=== PATIENT | male | born 1980 | race Caucasian/White ===

== ENCOUNTER 2022-09-03 01:10 | Emergency (ER) | payer MEDICARE, SELFPAY ==
[2022-09-03 01:16] VITALS: BP 149/98; PULSE 119; RESP 16; TEMP 37.1; O2SAT 96
--- NOTE | 2022-09-03 01:43 | ED.GENADUL_ITS ---
Discharge Plan Disposition Patient Disposition: Home Discharge Details Clinical Impression: Low back pain Primary Care Provider: Unknown,Unknown ED Provider: Matthew Diallo Home Meds and New Rx's Prescriptions: New naproxen 375 mg tablet 375 mg PO BID PRNQty: 30 0RF prednisone 10 mg tablets,dose pack 10 mg PO DIRECTED Qty: 21 0RF Rx Instructions: see taper instructions cyclobenzaprine 10 mg tablet 10 mg PO BID Qty: 20 0RF Discharge Instructions Instructions: Low Back Strain (ED) Referrals: Sulaiman Rose MD [ [facility] STAFF PHYSICIAN] - 5 days Discharge Data Discharge Date/Time-TO BE ENTERED AT DEPARTURE: 09/03/22 08:18 Discharge Physician: Matthew Diallo Medical Decision Making Patient with acute on chronic back pain has had multiple surgeries in his back c omes for mild muscle spasm probably related that he had a cane that he was using and has compensated with his back. He received Toradol in the emergency department and a Percocet but also will be discharged on Naprosyn and Flexeril and he will follow-up with the orthopedic surgeon if needed for he is concerned about the hardware that he has but he has no radiculopathy no neurological signs and is much improved after Toradol in the emergency department. He will be discharged home Medical Records Medical records reviewed: Yes I reviewed the patient's medical records. HPI General Date/Time Provider Initiated Documentation: 09/03/22 01:43 . HPI Narrative: Patient presents to the emergency department stating that he has acute on chronic back pain. States that for the last 3 weeks he has been having low back pain but denies any radiation to his lower extremities denies lower extremity weakness or numbness. 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 Reports the pain is a dull 4/10 pain sometimes gets worse sometimes improves. Related Data Home Medications Medication Instructions Recorded Confirmed cyclobenzaprine 10 mg tablet 10 mg PO BID #20 tabs 09/03/22 naproxen 375 mg tablet 375 mg PO BID PRN #30 tabs 09/03/22 prednisone 10 mg tablets in a dose 10 mg PO DIRECTED #21 dose pk 05/19/23 pack Previous Rx's Medication Instructions Recorded cyclobenzaprine 10 mg tablet 10 mg PO BID #20 tabs 09/03/22 naproxen 375 mg tablet 375 mg PO BID PRN #30 tabs 09/03/22 prednisone 10 mg tablets in a dose 10 mg PO DIRECTED #21 dose pk 09/03/22 pack Allergies Allergy/AdvReac Type Severity Reaction Status Date / Time acetaminophen [From Tylenol] Allergy Unverified 09/03/22 01:21 morphine Allergy Unverified 09/03/22 01:21 General Stated Complaint: Nk/Back Pain HUMBERTO: 3 Review of Systems All systems reviewed & are unremarkable except as noted in HPI and below Constitutional Constitutional: Reports as per HPI and Reports system reviewed and no additional complaints, except as documented Eyes Eyes: Reports as per HPI and Reports system reviewed and no additional complaints, except as documented ENT Ears, Nose, Mouth, and Throat: Reports system reviewed and no additional complaints, except as documented and Reports as per HPI Cardiovascular Cardiovascular: Reports as per HPI Respiratory Respiratory: Reports as per HPI and Reports system reviewed and no additional complaints, except as documented Gastrointestinal Gastrointestinal: Reports as per HPI and Reports system reviewed and no additional complaints, except as documented Musculoskeletal Musculoskeletal: Reports system reviewed and no additional complaints, except as documented Integumentary/Breasts Skin/Breast: Reports system reviewed and no additional complaints, except as documented Neurologic Neurologic: Reports system reviewed and no additional complaints, except as documented and Reports as per HPI PFSH All Active Problems Low back pain (Acute) Social History Smoking/Tobacco Use Status: Current every day Tobacco Type: cigarettes Smoking risk assessment performed?: Yes Drug use: Rarely Substance use type: marijuana and crack/cocaine Exam Const General: cooperative, healthy appearing, comfortable and no acute distress [facility] Head: normal to inspection, no palpable skull fracture, normocephalic and atraumatic General nose exam: external nose normal Face and sinus: normal facial exam Eyes General: appearance normal, both eyes and all related structures Neck Neck: normal visual inspection, full ROM and no lymphadenopathy Chest Chest: normal inspection of the chest and normal palpation of entire chest wall Resp Effort & Inspection: normal respiratory effort and able to speak in complete sentences Auscultation: clear to auscultation bilaterally Cardio Jugular venous pressure: no JVD Palpation: normal PMI Rate: regular rate Rhythm: regular rhythm Heart Sounds: S1 normal and S2 normal Back/Spine/Pelvis Thoracic/Lumbar Spine: thoraco-lumbar spasm and lumbar spinal tenderness Back/spine/pelvis image: 1. Tenderness to the lumbosacral spine with mild muscle spasm but full range of motion no step-offs Neuro General: patient alert, patient awake and patient oriented x3 Cranial Nerves: CN's II-XI intact bilaterally Cognition: normal cognition Speech: speech normal Gait: normal gait Motor: muscle tone normal throughout and strength 5/5 throughout Sensory Exam: no sensory deficits noted Course Vital Signs Vital signs: Vital Signs Temperature 37.1 C 09/03/22 01:16 Pulse 119 H 09/03/22 01:16 Respiratory Rate 16 09/03/22 01:16 Blood Pressure 149/98 H 09/03/22 01:16 Pulse Oximetry 96 09/03/22 01:16 Temperature 37.1 C 09/03/22 01:16 Temperature Source Temporal Artery Scan 09/03/22 01:16 Pulse 119 H 09/03/22 01:16 Respiratory Rate 16 09/03/22 01:16 Respiratory Effort Normal 09/03/22 01:16 Blood Pressure 149/98 H 09/03/22 01:16 Blood Pressure Position Sitting 09/03/22 01:16 Pulse Oximetry 96 09/03/22 01:16 Oxygen Delivery Method Room Air 09/03/22 01:16 Oxygen Flow Rate 0 09/03/22 01:16 Pain Level 10 09/03/22 01:16
[2022-09-03] MEDS: predniSONE 20 MG TAB 40 MG PO (01:50)
[2022-09-03] MEDS: Ketorolac 15 MG/ML VIAL IM (01:50)
== END 2022-09-03 08:18 | disposition home or self-care (01) ==
PROVIDERS: Emergency Provider Emergency Medicine Emergency Medical Services
DX: M54.50 Low back pain, unspecified (principal); G89.29 Other chronic pain; Z98.890 Other specified postprocedural states
CPT/HCPCS: 96372; 99284; J1885; J7512

== ENCOUNTER 2022-12-22 18:30 | Inpatient (IN) | payer MEDICARE, SELFPAY ==
[2022-12-22] VITALS (42 sets, daily range): BP systolic 97–164; BP diastolic 55–147; PULSE 72–117; RESP 12–22; TEMP 36.6; O2SAT 93–98
--- NOTE | 2022-12-22 18:15 | RT.EKG_ITS ---
APPROVED REPORT Exam: Resting ECG Reason for Exam: OD Patient Location: E HR:117 bpm ECG Measurements Heart Rate 117 AXIS IA 155 P 62 QRSd 95 QRS -17 QT 350 T 56 QTc 489 Conclusion Sinus tachycardia...rate> 99 Ventricular premature complex...V complex w/ short R-R interval Nonspecific T abnormalities, anterior leads...T <-0.10mV, V2-V4 Prolonged QT interval...QTc >488mS Narrow complex sinus tachycardia at a rate of 117. Intervals within normal limits with the exception of mildly prolonged QTc of 489 ms. Difficult to interpret patient wandering baseline. No acute inj ury pattern. No prior for comparison.
--- NOTE | 2022-12-22 18:31 | ED.GENADUL_ITS ---
Discharge Plan Disposition Patient Disposition: Admit to [facility] Discharge Details Clinical Impression: Overdose of cocaine, Acute encephalopathy, Acute hyperactive cocaine intoxication delirium, Agitation requiring sedation protocol Admit Date/Time: 12/22/22 21:43 Admit Provider: Matt Paulson Attending Provider: Matt Paulson Primary Care Provider: Unknown,Unknown ED Provider: Brian Ludwig Discharge Data Discharge Date/Time-TO BE ENTERED AT DEPARTURE: 12/22/22 22:42 Medical Decision Making This is an altered tachycardic but normothermic following overdose of cocaine and fentanyl now with hyperactive delirium with agitation requiring sedation. His QRS is not wide so we will defer bicarbonate at this point time. Will assess for myocardial injury using troponin. We will also assess for rhabdomyolysis using CK. Given the patient has received 10 mg of midazolam respiratory therapy evaluated the patient at bedside. His end-tidal CO2 was acceptable in the 30s. Patient was acutely agitated and required restraints. He was placed in four-point restraints. Given no head trauma I was not concerned for intracranial hemorrhage. No signs of trauma so we will defer trauma evaluation at this point time.Given no hypoxia and maintaining airway will defer subsequent naloxone at this point time to avoid possibility of precipitated opiate withdrawal. Fingerstick blood glucose within normal limits. Restraints The patient is actively exhibiting, verbally or nonverbally, through gestures or behavior, actions indicating an eminent risk of injury to the patient or others.? The behavior actively poses a threat, which puts themselves or another person in immediate danger of harm. I will remove restraints as soon as behavior has resolved, and the patient is able to contract for safety and the safety?of others. I will reassess the patient in an hour if they remain in restraints and I will complete the [id number] reassessment. 6:45 PM Patient was markedly hypertensive which is consistent with sympathomimetic toxidrome. He was tremulous in 4 extremities with some foaming at his mouth which raises the possibility of seizures so I ordered him off 3 mg of IV midazolam and 1.5 g of levetiracetam. Alcohol withdrawal is certainly also a possibility. 6:54 PM Patient was still tremulous in all 4 extremities and foaming at the mouth following 3 mg of midazolam. We will redose with 6 mg of midazolam given concern for possible seizures. Will order CT head once patient is sedate. 7:04 PM Patient with still tremulous and thrashing in bed but foaming had decreased. Will order 5 mg of diazepam. 7:12 PM Negative troponin. Negative ethanol. Negative acetaminophen. Basic metabolic panel with mild anion gap. Normal creatinine. Normal bicarbonate. Mild hypokalemia with a serum potassium of 3.3. Normal CK. Negative salicylate. CBC with leukocytosis but no anemia. No thrombocytopenia. Venous gas with no hypercarbia nor acidemia. Patient is still tremulous and intermittently straining at restraints. We will escalate to 10 mg of diazepam. 7:24 PM Patient remained with slightly decreased but still persistent agitation for which I gave him an additional 10 mg of diazepam. 7:35 PM Patient remained persistently agitated for which I will order him 4 milligrams of IV lorazepam. 7:40 PM Patient remained persistently agitated. Will order an additional 10 of diazepam and if patient requires more than 3 more doses of sedation will proceed to intubation with plan for propofol drip given concern for possible precipitated seizure. 8:30 PM Patient was intubated given his need for constant nursing supervision and concern for possible seizures versus sympathomimetic toxidrome requiring higher level of care. I spoke with Dr. Paulson who agreed graciously to accept the patient for hospitalization. Patient was intubated using rocuronium and propofol for paralytic and adduction respectively. I ordered a chest x-ray. We will insert a Marshall catheter and will order urine drug screen and urinalysis. We will also repeat basic labs and a CK and a troponin. For postintubation discomfort I gave an additional 200 mg of propofol and 1 mg of hydromorphone. 9:45 PM Patient became more agitated again. He is on a propofol drip and I will order him 20 mg of diazepam. Urine drug screen positive for cocaine. Will titrate propofol gtt to keep his systolic at 100mm Hg to ensure adequate sedation. HPI General Date/Time Provider Initiated Documentation: 12/22/22 18:31 . HPI Narrative: This is a patient with unknown history and unknown identity arriving via paramedics in the setting of an overdose. Patient was reportedly found by an acquaintance in the parking lot of a local grocery store. The acquaintance knew that his name was Cyril. The acquaintance was driving him home when he presumably became somnolent. The acquaintance reported administered a total of 8 mg intranasal naloxone. He subsequently became combative and his acquaintance drove him to the police department. Paramedics were called. Patient was able to ambulate to the ambulance. He reportedly had used fentanyl and cocaine. For his acute agitation he received 10 mg of intramuscular midazolam and 288 mg of ketamine by paramedics. Unable to obtain additional history secondary to the acuity of the patient's presentation. General Stated Complaint: OD/Poison HUMBERTO: 1 PFS All Active Problems (Updated 12/23/22 @ 08:52 by Brian Ludwig MD) Acute hyperactive cocaine intoxication delirium (Acute) Agitation requiring sedation protocol (Acute) Acute hyperactive opioid intoxication delirium (Acute) Aspiration pneumonia (Acute) Overdose of cocaine (Acute) Acute encephalopathy (Acute) Social History Smoking risk assessment performed?: No Exam Narrative Exam Narrative: General: Chronically ill-appearing agitated eyes closed with diffuse diaphoresis. Pulling out lines and arms. Head: Normocephalic, atraumatic. Eye: Pupils equal, round reactive to light 3 to 2 mm. Extraocular eye movements intact. No conjunctival injection. No scleral icterus. Ear, nose, mouth, throat: Grossly normal inspection. handling secretions normally. No hemotympanum. Neck: Trachea midline. Cardiovascular: Well-perfused distal extremities. Rapid regular rate Respiratory: Nonlabored respiration. Clear lungs. Gastrointestinal: Nondistended abdomen. Soft nontender Musculoskeletal: No edema. Moving all 4 extremities spontaneously. Healing abrasion to right forearm. Skin: Normal for age and race, grossly normal temperature and turgor. No acute rash. Neurologic: GCS 3. Psychiatric: Mood and manner are appropriate. Grooming and personal hygiene are appropriate. Course Vital Signs Vital signs: Vital Signs Pulse 117 H 12/22/22 18:22 Respiratory Rate 22 12/22/22 18:22 Pulse Oximetry 97 12/22/22 18:22 Pulse 117 H 12/22/22 18:22 Respiratory Rate 22 12/22/22 18:22 Pulse Oximetry 97 12/22/22 18:22 Oxygen Delivery Method Nasal Cannula 12/22/22 18:22 Oxygen Flow Rate 2 12/22/22 18:22 End Tidal Co2 32 12/22/22 18:22 Procedures Intubation Time out performed: Yes sedative: other (2 mg/kg propofol) paralytic: other (1.2 mg/kg rocuronium) Laryngoscope: other (Alba scope) ET Tube Size: 7 ET Tube Uncuffed: No Tube Secured Depth (cm): 24 Tube Secured Location: lips Tube Placement Confirmation: visualized tube passing through cords, equal breath sounds bilaterally and confirmation by capnometry Patient Tolerated Procedure: well Intubation Complications: none Additional Comments: Patient maintained on propofol drip. Critical Care Time Critical Care Time Critical Care Time: Yes Total Critical Care Time: 90 Attestation: Acute agitation
[2022-12-22] MEDS: Normal Saline 1,000 ML 1000 ML IV (18:41)
[2022-12-22 18:44] LABS: BE (Venous) 0 mmol/L (-2-3); HCO3 (Venous) 24 mmol/L (23-28); pCO2 (Venous) 34 mmHg (41-51); pH (Venous) 7.46 (7.31-7.41); pO2 (Venous) 156 mmHg
--- NOTE | 2022-12-22 18:45 | DI.CT_ITS ---
Exam(s) CT HEAD WO EXAM: CT HEAD WO CLINICAL HISTORY: Concern for seizure. TECHNIQUE: Imaging Protocol: Axial computed tomography images with coronal and sagittal reformatted images were created and reviewed COMPARISON: No exams were available for comparison FINDINGS: Patient is intubated.. There both nasal airway and endotracheal tube noted. Nasal bone fractures ev ident as well as nasal septal fractures, age indeterminate. There are no skull fractures. There is no fluid in the visualized paranasal sinuses. There is no evidence of intracranial hemorrhage, mass effect, or shift of midline structures. There are no extra-axial fluid collections. The ventricles are not enlarged or shifted and there is no blo od within the ventricular system nor within the basal cisterns. IMPRESSION: No acute intracranial findings on this noninfused CT scan of the brain. Intubated patient RADIATION DOSE DELIVERED: 788.63mGy.cm Total DLP DATA REPOSITORY: All CT scans at this facility are submitted to the National Radiology Data Registry (NRDR) Dose Index Registry (DIR) with the [employer] (A[employer]). RADIATION OPTIMIZATION: All CT scans at this facility use at least one of these dose optimization te chniques: automated exposure control; mA and/or kV adjustment per patient size (includes targeted exa ms where dose is matched to clinical indication); or iterative reconstruction.
[2022-12-22 18:46] LABS: Abs Immature Grans 0.04 10^3/uL (0.0-0.06); Absolute Eosinophil Count 0.26 10^3/uL (0.0-0.7); Absolute Lymphocyte Count 2.22 10^3/uL (1.2-3.4); Absolute Monocyte Count 0.77 10^3/uL (0.1-0.8); Basophils % 0.5; HCT 39.8 % (40.0-50.0); HGB 13.7 g/dL (13.5-17.5); Immature Grans % 0.3; Lymphocytes % 16.8; MCH 30.6 pg (27.0-33.0); MCHC 34.4 % (32.0-36.0); MCV 89 fL (80-95); MPV 11.3 fL (8.0-11.0); Monocytes % 5.8; Neutrophils % 74.6; O2 Sat (Venous) > 99 %; Platelet Count 220 10^3/uL (130-400); RBC 4.47 10^6/uL (4.36-5.78); RDW-SD 39.2 fL; WBC 13.21 10^3/uL (4.4-10.8)
[2022-12-22 18:48] LABS: Absolute Basophil Count 0.07 10^3/uL (0.0-0.2); Absolute Neutrophil Count 9.85 10^3/uL (1.2-6.7)
[2022-12-22] MEDS: Midazolam 2 MG/2 ML VIAL 3 MG IVP (19:00)
[2022-12-22] MEDS: Midazolam 2 MG/2 ML VIAL 6 MG IVP (19:05)
[2022-12-22 19:07] LABS: Anion Gap 14.2 mmol/L (3-11); BUN 12 mg/dL (7-18); CO2 23.8 mmol/L (21.0-32.0); Calcium 9.3 mg/dL (8.5-10.1); Chloride 102 mmol/L (98-107); Creatine Kinase 295 U/L (39-308); Estimated GFR 101.92 (mL/min/1.73m2); Glucose 103 mg/dL (74-106); Potassium 3.3 mmol/L (3.5-5.1); Salicylate 5.5 mg/dL (<2.8); Sodium 140 mmol/L (136-145)
[2022-12-22] MEDS: diazePAM 10 MG/2 ML SYR 5 MG IVP (19:07)
[2022-12-22 19:09] LABS: ETHANOL BLOOD < 3.0 mg/dL (<10); Troponin I < 50 ng/L (<or=60)
[2022-12-22 19:10] LABS: Acetaminophen < 2 ug/mL (10-30)
[2022-12-22] MEDS: diazePAM 10 MG/2 ML SYR IVP ×3 (19:17→19:40)
--- NOTE | 2022-12-22 19:27 | NUR.NOTE ---
After all of the medications pt continues to be unresponsive and fight against his restraints aggressively. Nursing Note:
[2022-12-22] MEDS: LORazepam 2 MG/ML VIAL 4 MG IVP (19:36)
[2022-12-22] MEDS: PROPOFOL 1,000 MG/100 ML BTL 1 MG (20:00)
--- NOTE | 2022-12-22 20:15 | DI.RAD_ITS ---
Exam(s) XR PORTABLE CHEST AP EXAM: XR PORTABLE CHEST AP CLINICAL HISTORY: Confirm ET tube. TECHNIQUE: 2D digital imaging was performed. COMPARISON: No exams were available for comparison FINDINGS: Single AP portable view. Patient is intubated and the distal tip of the endotracheal tube is in satisfactory position above th e latesha. Radiopaque densities projected over the trachea at C7 level. An NG tube is noted in the s tomach. Heart size is upper normal. The mediastinum is not widened. Lungs are clear. No infiltrates nor obvious pleural effusions. IMPRESSION: No acute pulmonary findings on this single AP portable view of the chest. ET tube in satisfactory position. NG tube is in the stomach. DATA REPOSITORY: RADIATION DOSE DELIVERED:
[2022-12-22] MEDS: HYDROmorphone 2 MG/ML SYR 1 MG IVP (20:49)
[2022-12-22 20:52] LABS: Bilirubin Negative (Negative); Blood Negative (Negative); Clarity Clear (Clear); Glucose Negative (Negative); Ketones Negative (Negative); Leukocyte Esterase Negative (Negative); Nitrite Negative (Negative); Urobilinogen 0.2 mg/dL (Up to 0.2)
[2022-12-22 20:59] LABS: *AMPHETAMINES SCREEN URINE Negative (Negative); *BARBITURATES SCREEN URINE Negative (Negative); *BENZODIAZEPINES SCREEN URINE Positive (Negative); Cannabinoids THC Negative (Negative); Cocaine Screen,Urine Positive (Negative); METHADONE URINE SCREEN Negative (Negative); OPIATES URINE SCREEN Negative (Negative)
[2022-12-22 21:00] LABS: Tricyclic Antidepressants Negative (Negative)
[2022-12-22 21:02] LABS: Anion Gap 11.1 mmol/L (3-11); BUN 11 mg/dL (7-18); CO2 25.9 mmol/L (21.0-32.0); CREATININE 0.9 mg/dL (0.70-1.30); Calcium 8.5 mg/dL (8.5-10.1); Chloride 106 mmol/L (98-107); Estimated GFR 108.68 (mL/min/1.73m2); Glucose 110 mg/dL (74-106); Potassium 3.3 mmol/L (3.5-5.1); Sodium 143 mmol/L (136-145); Troponin I < 50 ng/L (<or=60)
[2022-12-22] MEDS: PROPOFOL 1,000 MG/100 ML BTL 1.9 MG (21:10)
--- NOTE | 2022-12-22 21:13 | DI.VRAD_ITS ---
PROCEDURE INFORMATION: Exam: XR Chest Exam date and time: 12/22/2022 8:42 PM Age: 32 years old Clinical indication: Other: Concern for seizure, tube placement TECHNIQUE: Imaging protocol: Radiologic exam of the chest. Views: 1 view. COMPARISON: No relevant prior studies available. FINDINGS: Ended tube tip 4 cm above the latesha Lungs: Unremarkable. No consolidation. Pleural spaces: Unremarkable. No pleural effusion. No pneumothorax. Heart/Mediastinum: Unremarkable. No cardiomegaly. Bones/joints: Unremarkable. IMPRESSION: No acute findings. Dictated and Authenticated by: Shawn Mckeon MD. Ordering:AVIS Torres MD
[2022-12-22 21:15] LABS: Creatine Kinase 596 U/L (39-308); Magnesium 1.9 mg/dL (1.8-2.4)
--- NOTE | 2022-12-22 21:24 | DI.VRAD_ITS ---
PROCEDURE INFORMATION: Exam: CT Head Without Contrast Exam date and time: 12/22/2022 9:03 PM Age: 42 years old Clinical indication: Other: Concern for seizure TECHNIQUE: Imaging protocol: Computed tomography of the head without contrast. COMPARISON: No relevant prior studies available. FINDINGS: Brain: Mild volume loss No hemorrhage. Unremarkable white matter. No mass effect. Cerebral ventricles: No ventriculomegaly. Paranasal sinuses: Visualized sinuses are unremarkable. No fluid levels. Mastoid air cells: Visualized mastoid air cells are well aerated. Bones/joints: Minimal nasal bone/nasal septal fractures of indeterminate age Soft tissues: Unremarkable. IMPRESSION: No acute intracranial abnormality. Age-indeterminate nasal bone/nasal septal fractures Dictated and Authenticated by: Shawn Mckeon MD. Ordering:AVIS Torres MD
[2022-12-22] MEDS: Propofol 200 MG/20 ML VIAL 140 MG IVP (21:40)
[2022-12-22] MEDS: Rocuronium 50 MG/5 ML SYR 84 MG IVP (21:40)
--- NOTE | 2022-12-22 21:41 | W.PM.HP.N ---
Date of service: 12/22/22 Time of Service: 21:41 Assessment and Plan Assessment and plan (1) Overdose of cocaine: Start date: 12/22/22 Status: Acute Assessment and plan: This 42-year-old gentleman who does have a history of cocaine and fentanyl abuse as reported by friend presented with severe agitation after being given Narcan by his friend and did require heavy sedation in the ED now intubated on propofol infusion. Patient will continue with fentanyl IV as needed and propofol infusion for rest overnight. He is in restraints as needed. Labs are normal except for slight hypokalemia and patient will be placed on IV hydration with potassium with lab follow-up in the morning. Troponin was normal but CPK was slightly elevated with his agitation and being restrained this should be helped with IV hydration overnight. Follow-up CPK in the morning. He is resting presently and not tugging which should help CPK to clear. He is a full code. (2) Acute encephalopathy: Start date: 12/22/22 Status: Acute Assessment and plan: Secondary to polysubstance abuse and oversedation with fentanyl suspected which would not be screened on the urine drug screen. He does also use cocaine. Monitor with sedation and intubation. This should clear with time. He is not having obvious seizures at this time but was loaded with Keppra in the ED. Consider continuing Keppra if any evidence of seizures at the patient awakens. (3) Aspiration pneumonia: Start date: 12/22/22 Status: Acute Assessment and plan: Patient does not have any signs of aspiration on chest x-ray but is rhonchorous with intubation and there is some concern of aspiration with slight leukocytosis. He will be covered with Unasyn IV. Reevaluate with follow-up chest x-ray and clinically. (4) Acute hyperactive opioid intoxication delirium: Start date: 12/22/22 Status: Acute Assessment and plan: Patient will remain sedated and intubated for safety. IV fentanyl as needed for sedation and withdrawal. Long-term patient needs drug alcohol rehabilitation. This delirium should clear the patient's outpatient illicit medications are cleared over time. History of Present Illness History of Present Illness Chief Complaint: Agitation with presumed cocaine overdose Narrative: This is a 42-year-old male patient who was brought into the ED via EMS with monitor the patient because of severe agitation as a defective cigarette slitter was trying to bring him to the police station and to the ED. He required Versed and ketamine and then in the ED required several doses of Valium as well as being given Keppra loading dose because of possible seizures. He was eventually intubated because of severe agitation and high-dose Valium and placed on propofol drip. At the time I saw the patient in the ED he was sedated and resting comfortably though he did sounds slightly rhonchorous despite being intubated. He has had an NG tube in place with some blood around the NG tube. He was unable to give further history. See ED note for further course in the ED. Patient had a negative alcohol level and is not certain whether he drinks alcohol. He definitely is a polysubstance abuser using fentanyl and cocaine by history from his defective cigarette slitter. He is a full code. Review of Systems Narrative: 13 point review of systems otherwise unrevealing or unobtainable with patient encephalopathic. [facility] All Active Problems (Updated 12/22/22 @ 22:54 by Matt Paulson) Acute hyperactive opioid intoxication delirium (Acute) Aspiration pneumonia (Acute) Overdose of cocaine (Acute) Acute encephalopathy (Acute) Social History Smoking risk assessment performed?: No Exam Narrative Exam Narrative: General: Patient appears older than stated age, thin and unkempt appearing chronically ill. He is intubated and sedated. HEENT: Normocephalic, coarsened facial features, eyes with pupils small but equal and reactive light symmetrically, extraocular movement intact and sclera anicteric. Oropharynx with dry mucosa with patient intubated and having NG tube in place. Poor dentition. Neck: Supple without JVD. Lungs: Bronchovesicular breath sounds diffusely with occasional rhonchi with expiration be mechanically ventilated. No focalizing rales. Fair aeration with mechanical ventilation. Heart: Regular rate and rhythm with no murmurs gallops appreciated. Abdomen: Scaphoid contour, soft nontender to palpation with no palpable hepatosplenomegaly. Bowel sounds positive in all quadrants. Genitalia/rectal: Full exam deferred. External genitalia normal with circumcised penis and Marshall catheter in place. Extremities: Without clubbing, cyanosis or pitting edema. Peripheral pulse intact. Skin: Normal color, warm and dry. Neuro: Cranial nerves II through XII grossly intact as assessed with patient sedated. No focal motor deficits with patient is awake. No tremor. Psych: Patient is encephalopathic and intubated now sedated. He does have severe agitation when awake. Results Imaging Imaging Studies: Exam: CT Head Without Contrast Exam date and time: 12/22/2022 9:03 PM Age: 42 years old Clinical indication: Other: Concern for seizure TECHNIQUE: Imaging protocol: Computed tomography of the head without contrast. COMPARISON: No relevant prior studies available. FINDINGS: Brain:? Mild volume loss No hemorrhage. Unremarkable white matter. No mass effect. Cerebral ventricles: No ventriculomegaly. Paranasal sinuses: Visualized sinuses are unremarkable. No fluid levels. Mastoid air cells: Visualized mastoid air cells are well aerated. Bones/joints:? Minimal nasal bone/nasal septal fractures of indeterminate age Soft tissues: Unremarkable. IMPRESSION: No acute intracranial abnormality. Age-indeterminate nasal bone/nasal septal fractures Exam: XR Chest Exam date and time: 12/22/2022 8:42 PM Age: 32 years old Clinical indication: Other: Concern for seizure, tube placement TECHNIQUE: Imaging protocol: Radiologic exam of the chest. Views: 1 view. COMPARISON: No relevant prior studies available. FINDINGS: Ended tube tip 4 cm above the latesha Lungs: Unremarkable. No consolidation. Pleural spaces: Unremarkable. No pleural effusion. No pneumothorax. Heart/Mediastinum: Unremarkable. No cardiomegaly. Bones/joints: Unremarkable. IMPRESSION: No acute findings. Labs 12/22/22 18:30 12/22/22 20:20 Labs: Laboratory Results - last 24 hr 12/22/22 12/22/22 12/22/22 18:30 18:30 18:30 WBC 13.21 H RBC 4.47 Hgb 13.7 Hct 39.8 L MCV 89 MCH 30.6 MCHC 34.4 RDW 12.0 Plt Count 220 MPV 11.3 H Immature Gran % 0.3 Neutrophils % 74.6 Lymphocytes % 16.8 Monocytes % 5.8 Eosinophils % 2.0 Basophils % 0.5 Nucleated RBC % 0.0 Absolute Neutrophils 9.85 H Absolute Lymphocytes 2.22 Absolute Monocytes 0.77 Absolute Eosinophils 0.26 Absolute Basophils 0.07 VBG pH VBG pCO2 VBG pO2 VBG HCO3 VBG Total CO2 VBG O2 Saturation VBG Base Excess Sodium 140 Potassium 3.3 L Chloride 102 Carbon Dioxide 23.8 Anion Gap 14.2 H BUN 12 Creatinine 1.0 Est GFR (CKD-EPI 2020) 101.92 Glucose 103 Calcium 9.3 Magnesium Creatine Kinase 295 Troponin I < 50 Urine Color Urine Clarity Urine pH Ur Specific [place] Urine Protein Urine Ketones Urine Blood Urine Nitrite Urine Bilirubin Urine Urobilinogen Ur Leukocyte Esterase Urine Glucose Salicylates 5.5 Urine Opiates Screen Urine Methadone Screen Acetaminophen < 2 Ur Barbiturates Screen Ur Tricyclics Screen Ur Amphetamines Screen U Benzodiazepines Scrn Urine Cocaine Screen Ur THC Screen Ethyl Alcohol < 3.0 12/22/22 12/22/22 12/22/22 18:30 20:20 20:20 WBC RBC Hgb Hct MCV MCH MCHC RDW Plt Count MPV Immature Gran % Neutrophils % Lymphocytes % Monocytes % Eosinophils % Basophils % Nucleated RBC % Absolute Neutrophils Absolute Lymphocytes Absolute Monocytes Absolute Eosinophils Absolute Basophils VBG pH 7.46 H VBG pCO2 34 L VBG pO2 156 VBG HCO3 24 VBG Total CO2 VBG O2 Saturation > 99 VBG Base Excess 0 Sodium 143 Potassium 3.3 L Chloride 106 Carbon Dioxide 25.9 Anion Gap 11.1 H BUN 11 Creatinine 0.9 Est GFR (CKD-EPI 2020) 108.68 Glucose 110 H Calcium 8.5 Magnesium 1.9 Creatine Kinase 596 H Troponin I < 50 Urine Color Urine Clarity Urine pH Ur Specific [place] Urine Protein Urine Ketones Urine Blood Urine Nitrite Urine Bilirubin Urine Urobilinogen Ur Leukocyte Esterase Urine Glucose Salicylates Urine Opiates Screen Urine Methadone Screen Acetaminophen Ur Barbiturates Screen Ur Tricyclics Screen Ur Amphetamines Screen U Benzodiazepines Scrn Urine Cocaine Screen Ur THC Screen Ethyl Alcohol 12/22/22 12/22/22 20:20 20:20 WBC RBC Hgb Hct MCV MCH MCHC RDW Plt Count MPV Immature Gran % Neutrophils % Lymphocytes % Monocytes % Eosinophils % Basophils % Nucleated RBC % Absolute Neutrophils Absolute Lymphocytes Absolute Monocytes Absolute Eosinophils Absolute Basophils VBG pH VBG pCO2 VBG pO2 VBG HCO3 VBG Total CO2 VBG O2 Saturation VBG Base Excess Sodium Potassium Chloride Carbon Dioxide Anion Gap BUN Creatinine Est GFR (CKD-EPI 2020) Glucose Calcium Magnesium Creatine Kinase Troponin I Urine Color Yellow Urine Clarity Clear Urine pH 7.0 Ur Specific [place] 1.010 Urine Protein Negative Urine Ketones Negative Urine Blood Negative Urine Nitrite Negative Urine Bilirubin Negative Urine Urobilinogen 0.2 Ur Leukocyte Esterase Negative Urine Glucose Negative Salicylates Urine Opiates Screen Negative Urine Methadone Screen Negative Acetaminophen Ur Barbiturates Screen Negative Ur Tricyclics Screen Negative Ur Amphetamines Screen Negative U Benzodiazepines Scrn Positive A Urine Cocaine Screen Positive A Ur THC Screen Negative Ethyl Alcohol Last Vital Signs Temp 36.6 C 12/22/22 19:19 Pulse 82 12/22/22 21:31 Resp 14 12/22/22 21:33 BP 158/126 H 12/22/22 21:31 Pulse Ox 96 12/22/22 21:33 Time Spent Time spent with Patient: >75 minutes Time was spent: preparing to see the patient(eg.review tests), obtaining and/or reviewing separately otained hiistory, ordering medications,tests, procedures, referring, communicating with other health school childcare attendant, indepentently interpreting results and care coordination
[2022-12-22] MEDS: diazePAM 10 MG/2 ML SYR 20 MG IVP (21:52)
[2022-12-23] VITALS (71 sets, daily range): BP systolic 97–155; BP diastolic 57–119; PULSE 75–138; RESP 11–21; TEMP 36.6–37.8; O2SAT 90–100
[2022-12-23] MEDS: POTASSIUM CHLORIDE/0.9% NACL 1,000 ML 125 MEQ IV (01:00)
[2022-12-23] MEDS: fentaNYL 100 MCG/2 ML VIAL 50 MCG IVP (03:15)
[2022-12-23] MEDS: diazePAM 10 MG/2 ML SYR IVP (03:58)
[2022-12-23] MEDS: AMPICILLIN/SULBACTAM 3 GM in Normal Saline 100 ML IVPB ×3 (04:22→19:29)
--- NOTE | 2022-12-23 04:49 | NUR.NOTE ---
ng TUBE DCD ORDERED BY dR Tapia
--- NOTE | 2022-12-23 06:40 | PUCC_ITS ---
General Date of Service Date of service: 12/23/22 Time of Service: 06:40 Reason for Admission to ICU: Overdose Assessment and Plan Assessment and plan (1) Overdose of cocaine: Status: Acute (2) Acute encephalopathy: Status: Acute (3) Leukocytosis: Status: Acute (4) Hypokalemia: Status: Acute (5) Elevated CK: Status: Acute Assessment and plan: This is a 42 yo with cocaine and possible over substance overdose. He was intubated but self extubated overnight due to agitation. He is able to tolerate his airway safely and is currently somnolent. He needs to have 4 point restraints removed and once he awakens his Marshall can be removed. He does not have rhabdo given modest rise in CK. There was concern for an aspiration, but his chest Xray is normal. It would be appropriate to continue antibiotics for 72 hours. Recommendations Pulmonary: Aspiration concern - can continue Unasyn/Augmentin for a total of 72 hours Cardiac: No acute conern Renal: Elevated CK - no rhabdo, no concerns I&O: Intake & Output 12/20/22 12/21/22 12/22/22 12/23/22 23:59 23:59 23:59 23:59 Intake Total 1115 / 1115 Output Total 300 / 300 600 / 600 Balance 815 / 815 -600 / -600 Weight 74.6 kg 74.6 kg Daily Fluid Goal:: even GI Nutrition: OK for diet when he awakens Infectious Disease: Aspiration concern - can continue Unasyn/Augmentin for a total of 72 hours Hematologic: Leukocytosis - reactive likely Neurologic: Polysubstance overdose - fentanyl and propofol discontinued - Valium for CIWA protocol - can change banana bag to thiamine, folate, MVI (not acutely intoxicated) Endocrine: No actue concerns Lines: PIV Marshall Prophylaxis: Lovenox Code Status: Resuscitation Status Full Code Subjective Critical and life-threatening events over the past 24 hours: This is a 42 yo admitted to the ICU for a cocaine (query polysubstance) overdose who was intubated in the ED. Please see H7P for more details. In the ICU he became agitated and self extubated. Sedating medications were stopped, but he has been receiving Valium. I stopped the propofol and fentanyl orders, and the Valium should only be for CIWA indications. He was sleeping and able to protect his airway on my assessment. He was still in 4 point restraints, but I instructed nursing to remove these and upon his aw akening, to remove the Marshall. Vital signs are stable. Exam Narrative Exam Narrative: Gen: NAD, sleeping HENT: normocephalic, atraumatic Chest: No respiratory distress, normal appearance of chest, clear to auscultation bilaterally, no crackles or wheezes, normal inspiratory effort Heart: regular rate and rhythym, no murmurs, rubs or gallops Abdomen: Non-distended, soft, non tender Extremities: No clubbing, edema, cyanosis, rashes Neuro: somnolent Psych: somnolent Most Recent VS/Results Last Vital Signs Temp 36.8 C 12/23/22 06:09 Pulse 95 H 12/23/22 06:09 Resp 16 12/23/22 06:09 BP 138/74 12/23/22 06:09 Pulse Ox 99 12/23/22 06:01 Laboratory Results - last 24 hr 12/22/22 12/22/22 12/22/22 18:30 18:30 18:30 WBC 13.21 H RBC 4.47 Hgb 13.7 Hct 39.8 L MCV 89 MCH 30.6 MCHC 34.4 RDW 12.0 Plt Count 220 MPV 11.3 H Immature Gran % 0.3 Neutrophils % 74.6 Lymphocytes % 16.8 Monocytes % 5.8 Eosinophils % 2.0 Basophils % 0.5 Nucleated RBC % 0.0 Absolute Neutrophils 9.85 H Absolute Lymphocytes 2.22 Absolute Monocytes 0.77 Absolute Eosinophils 0.26 Absolute Basophils 0.07 VBG pH VBG pCO2 VBG pO2 VBG HCO3 VBG Total CO2 VBG O2 Saturation VBG Base Excess Sodium 140 Potassium 3.3 L Chloride 102 Carbon Dioxide 23.8 Anion Gap 14.2 H BUN 12 Creatinine 1.0 Est GFR (CKD-EPI 2020) 101.92 Glucose 103 Calcium 9.3 Magnesium Creatine Kinase 295 Troponin I < 50 Urine Color Urine Clarity Urine pH Ur Specific [place] Urine Protein Urine Ketones Urine Blood Urine Nitrite Urine Bilirubin Urine Urobilinogen Ur Leukocyte Esterase Urine Glucose Salicylates 5.5 Urine Opiates Screen Urine Methadone Screen Acetaminophen < 2 Ur Barbiturates Screen Ur Tricyclics Screen Ur Amphetamines Screen U Benzodiazepines Scrn Urine Cocaine Screen Ur THC Screen Ethyl Alcohol < 3.0 12/22/22 12/22/22 12/22/22 18:30 20:20 20:20 WBC RBC Hgb Hct MCV MCH MCHC RDW Plt Count MPV Immature Gran % Neutrophils % Lymphocytes % Monocytes % Eosinophils % Basophils % Nucleated RBC % Absolute Neutrophils Absolute Lymphocytes Absolute Monocytes Absolute Eosinophils Absolute Basophils VBG pH 7.46 H VBG pCO2 34 L VBG pO2 156 VBG HCO3 24 VBG Total CO2 VBG O2 Saturation > 99 VBG Base Excess 0 Sodium 143 Potassium 3.3 L Chloride 106 Carbon Dioxide 25.9 Anion Gap 11.1 H BUN 11 Creatinine 0.9 Est GFR (CKD-EPI 2020) 108.68 Glucose 110 H Calcium 8.5 Magnesium 1.9 Creatine Kinase 596 H Troponin I < 50 Urine Color Urine Clarity Urine pH Ur Specific [place] Urine Protein Urine Ketones Urine Blood Urine Nitrite Urine Bilirubin Urine Urobilinogen Ur Leukocyte Esterase Urine Glucose Salicylates Urine Opiates Screen Urine Methadone Screen Acetaminophen Ur Barbiturates Screen Ur Tricyclics Screen Ur Amphetamines Screen U Benzodiazepines Scrn Urine Cocaine Screen Ur THC Screen Ethyl Alcohol 12/22/22 12/22/22 20:20 20:20 WBC RBC Hgb Hct MCV MCH MCHC RDW Plt Count MPV Immature Gran % Neutrophils % Lymphocytes % Monocytes % Eosinophils % Basophils % Nucleated RBC % Absolute Neutrophils Absolute Lymphocytes Absolute Monocytes Absolute Eosinophils Absolute Basophils VBG pH VBG pCO2 VBG pO2 VBG HCO3 VBG Total CO2 VBG O2 Saturation VBG Base Excess Sodium Potassium Chloride Carbon Dioxide Anion Gap BUN Creatinine Est GFR (CKD-EPI 2020) Glucose Calcium Magnesium Creatine Kinase Troponin I Urine Color Yellow Urine Clarity Clear Urine pH 7.0 Ur Specific [place] 1.010 Urine Protein Negative Urine Ketones Negative Urine Blood Negative Urine Nitrite Negative Urine Bilirubin Negative Urine Urobilinogen 0.2 Ur Leukocyte Esterase Negative Urine Glucose Negative Salicylates Urine Opiates Screen Negative Urine Methadone Screen Negative Acetaminophen Ur Barbiturates Screen Negative Ur Tricyclics Screen Negative Ur Amphetamines Screen Negative U Benzodiazepines Scrn Positive A Urine Cocaine Screen Positive A Ur THC Screen Negative Ethyl Alcohol Review of Systems Unobtainable due to mental status Time spent with patient Time spent in Critical Care: 35 Time spent in Critical care included: Coordination of care, Chart review, Documenting critically ill care, Time at immediate bedside and Discussing critically ill care with other medical staff
--- NOTE | 2022-12-23 08:35 | PDOC.CMIN ---
Date of service: 12/23/22 Time of Service: 08:35 Care Management Initial Assmt Initial Assessment REASON FOR HOSPITALIZATION:: respiratory failure PREVIOUS FUNCTIONAL STATUS/SOCIAL/FAMILY SUPPORTS:: Cristobal lives in [place], per chart review. Patient somnolent and unable to be interviewed. CURRENT FUNCTIONAL STATUS:: Cristobal is sedated and somnolent today and unable to respond to questions. He was asleep each time CM attempted to see him. ADVANCE DIRECTIVES:: none on file Has patient been provided with info about the portal/API?: Yes Did the patient sign up for the portal?: No CODE STATUS:: Full Code INSURANCE COVERAGE / FINANCIAL ISSUES:: [facility] medicare Replacement Plan POTENTIAL DISCHARGE NEEDS:: establish with PCP PATIENT/FAMILY EDUCATION NEEDS:: Review of discharge instructions, limitations, follow up plan, discuss Ask Me Three TRANSPORTATION:: via private vehicle PLAN:: Anticipate Cristobal will be discharged home with no new services when medically cleared. He will follow up with the assigned provider and plan of care and transport with a friend. CM will follow and assess for discharge planning PFSH All Active Problems (Updated 12/23/22 @ 13:02 by Naseem Wright MD) Accidental fentanyl overdose (Acute) Elevated CK (Acute) Hypokalemia (Acute) Leukocytosis (Acute) Overdose of cocaine (Acute) Acute encephalopathy (Acute) Aspiration pneumonia (Acute) Acute hyperactive opioid intoxication delirium (Acute) Acute hyperactive cocaine intoxication delirium (Acute) Agitation requiring sedation protocol (Acute) Social History (System 12/23/22 @ 09:16 by Amelia Almendarez) Smoking/Tobacco Use Status: Current every day Tobacco Type: cigarettes Smoking risk assessment performed?: Yes Drug use: Rarely Substance use type: marijuana and crack/cocaine
[2022-12-23] MEDS: Normal Saline Flush 10 ML SYR (10:02)
--- NOTE | 2022-12-23 10:35 | W.PM.PROGNOT ---
Date of Service Date of service: 12/23/22 Time of Service: 10:35 Assessment and Plan Assessment and plan (1) Acute encephalopathy: Status: Acute Assessment and plan: encephalopathy secondary to drug overdose and subsequent need for sedation to protect his airway. He subsequently self extubated during the night and now is somnolent d/t medications given early this morning to control his agitation (fentanyl and valium). continue observation in the ICU; no need to urgently re-intubate. he seems to be protectin his airway. Will keep NPO and keep cerda in place until he is more awake and coherent then will trial w/ liquid intake. will give gentle iv fluids and correct his electrolytes. Unfortunately no one was able to redraw his labs this morning. Critical care time spent interviewing and examining the patient, reviewing studies, discussing case with patient's nurse and consulting physicians was 45 minutes outside of time spent POCUS exam (2) Aspiration pneumonia: Status: Acute Assessment and plan: although his CXR last night did not show any infiltrates, his chest US suggests otherwise. I would continue iv Unasyn while inpatient. When awake and able to take po I will switch to Augmentin x 5 days. (3) Acute hyperactive opioid intoxication delirium: Status: Acute (4) Overdose of cocaine: Status: Acute (5) Accidental fentanyl overdose: Status: Acute (6) Elevated CK: Status: Acute (7) Hypokalemia: Status: Acute Subjective Subjective Interval history since last seen: 42-year-old male with a history of polysubstance abuse who become acutely somnolent and unresponsive while an acquaintance was driving home from the parking [employer] grocery store. The acquaintenance gave him naloxone 8 mg intranasal and he became combative at which point he was driven to local police and EMS was called to the seen. Patient reportedly had been using fentanyl and cocaine. EMS gave him midazolam and ketamine to control his agitations. While in the ED he became hypertensive and tremulous and exhibited foaming of the mouth raising possibility of a seizure. Patient received more midazolam and keppra 1.5 gm and escalating doses of lorazepam as well as diazepam and evetually was put on propofol dirp and intubated. Overnight he extubated himself despite being in 4 point restraints. Restraints have since been discontinued. He received fentanyl 50 mcg and valium 10 mg IV earlier this moring (fentanyl around 3:15 am and valium 10 mg at 4 am. He remains very sedated w/ sonorous respirations but w/ SPO2 of 100% on 2 lpm. Exam Narrative Exam Narrative: Patient is somnolent, sonorous respirations, he is arouseable but does not sustain any level of alertness and does not follow command HEENT: poor oral hygeine, poor dentition Neck: supple, multiple track ryan over neck, he has stateless character over right and left side of his neck Lungs: coarse bilateral rales; no wheezing Heart: RRR Abdomen: soft, nondistended, normal bowel sounds Extremities: track ryan but no open sores Objective Last Vital Signs Temp 37.6 C H 12/23/22 07:30 Pulse 98 H 12/23/22 09:00 Resp 18 12/23/22 09:00 BP 134/83 12/23/22 09:00 Pulse Ox 98 12/23/22 09:00 Laboratory Results - last 24 hr 12/22/22 12/22/22 12/22/22 18:30 18:30 18:30 WBC 13.21 H RBC 4.47 Hgb 13.7 Hct 39.8 L MCV 89 MCH 30.6 MCHC 34.4 RDW 12.0 Plt Count 220 MPV 11.3 H Immature Gran % 0.3 Neutrophils % 74.6 Lymphocytes % 16.8 Monocytes % 5.8 Eosinophils % 2.0 Basophils % 0.5 Nucleated RBC % 0.0 Absolute Neutrophils 9.85 H Absolute Lymphocytes 2.22 Absolute Monocytes 0.77 Absolute Eosinophils 0.26 Absolute Basophils 0.07 VBG pH VBG pCO2 VBG pO2 VBG HCO3 VBG Total CO2 VBG O2 Saturation VBG Base Excess Sodium 140 Potassium 3.3 L Chloride 102 Carbon Dioxide 23.8 Anion Gap 14.2 H BUN 12 Creatinine 1.0 Est GFR (CKD-EPI 2020) 101.92 Glucose 103 Calcium 9.3 Magnesium Creatine Kinase 295 Troponin I < 50 Urine Color Urine Clarity Urine pH Ur Specific Batson Urine Protein Urine Ketones Urine Blood Urine Nitrite Urine Bilirubin Urine Urobilinogen Ur Leukocyte Esterase Urine Glucose Salicylates 5.5 Urine Opiates Screen Urine Methadone Screen Acetaminophen < 2 Ur Barbiturates Screen Ur Tricyclics Screen Ur Amphetamines Screen U Benzodiazepines Scrn Urine Cocaine Screen Ur THC Screen Ethyl Alcohol < 3.0 12/22/22 12/22/22 12/22/22 18:30 20:20 20:20 WBC RBC Hgb Hct MCV MCH MCHC RDW Plt Count MPV Immature Gran % Neutrophils % Lymphocytes % Monocytes % Eosinophils % Basophils % Nucleated RBC % Absolute Neutrophils Absolute Lymphocytes Absolute Monocytes Absolute Eosinophils Absolute Basophils VBG pH 7.46 H VBG pCO2 34 L VBG pO2 156 VBG HCO3 24 VBG Total CO2 VBG O2 Saturation > 99 VBG Base Excess 0 Sodium 143 Potassium 3.3 L Chloride 106 Carbon Dioxide 25.9 Anion Gap 11.1 H BUN 11 Creatinine 0.9 Est GFR (CKD-EPI 2020) 108.68 Glucose 110 H Calcium 8.5 Magnesium 1.9 Creatine Kinase 596 H Troponin I < 50 Urine Color Urine Clarity Urine pH Ur Specific Batson Urine Protein Urine Ketones Urine Blood Urine Nitrite Urine Bilirubin Urine Urobilinogen Ur Leukocyte Esterase Urine Glucose Salicylates Urine Opiates Screen Urine Methadone Screen Acetaminophen Ur Barbiturates Screen Ur Tricyclics Screen Ur Amphetamines Screen U Benzodiazepines Scrn Urine Cocaine Screen Ur THC Screen Ethyl Alcohol 12/22/22 12/22/22 20:20 20:20 WBC RBC Hgb Hct MCV MCH MCHC RDW Plt Count MPV Immature Gran % Neutrophils % Lymphocytes % Monocytes % Eosinophils % Basophils % Nucleated RBC % Absolute Neutrophils Absolute Lymphocytes Absolute Monocytes Absolute Eosinophils Absolute Basophils VBG pH VBG pCO2 VBG pO2 VBG HCO3 VBG Total CO2 VBG O2 Saturation VBG Base Excess Sodium Potassium Chloride Carbon Dioxide Anion Gap BUN Creatinine Est GFR (CKD-EPI 2020) Glucose Calcium Magnesium Creatine Kinase Troponin I Urine Color Yellow Urine Clarity Clear Urine pH 7.0 Ur Specific Batson 1.010 Urine Protein Negative Urine Ketones Negative Urine Blood Negative Urine Nitrite Negative Urine Bilirubin Negative Urine Urobilinogen 0.2 Ur Leukocyte Esterase Negative Urine Glucose Negative Salicylates Urine Opiates Screen Negative Urine Methadone Screen Negative Acetaminophen Ur Barbiturates Screen Negative Ur Tricyclics Screen Negative Ur Amphetamines Screen Negative U Benzodiazepines Scrn Positive A Urine Cocaine Screen Positive A Ur THC Screen Negative Ethyl Alcohol Time Spent with Patient Time Spent with Patient: 35-49 minutes Time was spent: preparing to see the patient(eg.review tests), ordering medications,tests, procedures, referring, communicating with other health healthcare corporate account director, indepentently interpreting results, counseling the patient and care coordination
--- NOTE | 2022-12-23 11:05 | W.POCUS ---
Pocus Exam Limited Thoracic Lung Exam DATE OF EXAM: 12/23/22 TIME OF EXAM: 10:45 PROVIDER THAT PERFORMED THE STUDY: Naseem Wright IS THIS A REPEAT EXAM DURING THIS ENCOUNTER: No REASON FOR EXAM: Hypoxia and Other (aspiration) indication: hypoxemia, aspiration VISUALIZED STRUCTURES: right anterior, left anterior, right lateral, left lateral, right subcostal and left subcostal PERTINENT FINDINGS/IMPRESSION: B-lines/left side thoracis location: lateral and B-lines/right side thoracis location: lateral INCIDENTAL FINDINGS: Patient w/ A/B pattern demonstrating normal A lines in right anterior superior, right anterior inferior, right superior lateral, left anterior superior, left anterior inferior, and left lateral superior lung matson but showing B line pattern in right inferolateral and left inferolateral lung matson. no significant effusions were seen, no air bronchograms were seen. The B lines were of mild to moderate density and there was some irregularity to the pleura. this is suggestive of an incipient pneumonia Exam complete
[2022-12-23] MEDS: THIAMINE 500 MG in Normal Saline 100 ML 200 MG IVPB ×2 (14:04→22:01)
[2022-12-23] MEDS: Nicotine 21 MG/24 HR PATCH TD (23:48)
[2022-12-23] MEDS: Nicotine 2 MG GUM CH (23:52)
[2022-12-24] VITALS (8 sets, daily range): BP systolic 110–131; BP diastolic 64–89; PULSE 83–95; RESP 16–23; TEMP 37.3–37.9; O2SAT 95–99
[2022-12-24] MEDS: AMPICILLIN/SULBACTAM 3 GM in Normal Saline 100 ML IVPB ×2 (01:20→09:54)
[2022-12-24] MEDS: POTASSIUM CHLORIDE/0.9% NACL 1,000 ML 125 MEQ IV (01:34)
--- NOTE | 2022-12-24 02:30 | NUR.NOTE ---
Nursing Note: At 0200 the patient demanded that the IV fluids be stopped. At 0220 the patient pulled the electrode leads off his chest and threw the unit towards the sink. The unit fell to the floor with all the stickers still attached to the leads. The patient is refusing to have the leads reattached as per provider orders.So be it.
[2022-12-24] MEDS: THIAMINE 500 MG in Normal Saline 100 ML 200 MG IVPB (05:11)
--- NOTE | 2022-12-24 08:10 | CMPROGNOTE_ITS ---
Date of service: 12/24/22 Time of Service: 08:10 Care Management Progress Note Progress Note Text Progress Note Text: S/O:Cristobal is more responsive today but is still very sleepy. When CM met with him the first time he refused to engage in conversation. The second time CM attempted to see him his girlfriend was present and was able to answer questions. CM learned that Joshua is disabled and that he has 6 children. He does not see most of them and they do not live in the area. Joshua recently relocated from [place] and has no local PCP. He will be scheduled for a follow up visit with Laina Fairbanks MD at [facility] (T-Doc on day of Joshua's admission)aft er discharge. Clinically, Joshua is doing better. he is no longer scoring on the CIWA scale and has not needed ant prn medication. A:Cristobal is a 42 year old man admitted on 12/22/22 with respiratory failure P:Anticipate Cristobal will be discharged home with no new services when medically cleared. He will follow up with the assigned provider and plan of care and transport with a friend. CM will follow and assess for discharge planning
[2022-12-24] MEDS: Acetaminophen 325 MG TAB PO (08:18)
--- NOTE | 2022-12-24 08:22 | NUR.NOTE ---
Patient given 650mg of Acetaminophen for low grade fever of 37.9. Nursing Note:
--- NOTE | 2022-12-24 08:49 | NUR.NOTE ---
Patient sitting up in bed feeding himself breakfast.Nursing Note:
--- NOTE | 2022-12-24 08:59 | PGE_ITS ---
Date of Service Date of service: 12/24/22 Time of Service: 08:59 Assessment and Plan Assessment and plan (1) Acute encephalopathy: Status: Acute Assessment and plan: Patient became encephalpathy d/t polypharmacy overdose and subsequent benzodiazepines given to intubate him and to keep him sedated. He had multiple doses of valium which has long half life. He seems to be starting to clear some of this and now is more arouseable and will remain attentive for short spans. He is stable from hemodynamic and respiratory standpoint. He will be transfer to med/surg where he will start work w/ P.T. and nursing should get him out of bed to chair for all meals and I will order acapella and IS. he can be switched from Unasyn to Augmentin. I will empirically treat for 5 days. Once he is able to sustain prolonged alertness and able to ambulate safely independently then he can be dc home. He should be referred to drug recovery counselor but I susptect that he has no desire to quit using opioids. Professional time spent interviewing and examining patient, discussion of goals of care with hospital team (care management, nursing and consulting professionals) was 35 minutes. (2) Aspiration pneumonia: Status: Acute Assessment and plan: We can make the switch to Augmenin. encourage cough and deep breathing and use of acapella (3) Acute hyperactive opioid intoxication delirium: Status: Acute (4) Overdose of cocaine: Status: Acute (5) Accidental fentanyl overdose: Status: Acute (6) Elevated CK: Status: Acute Assessment and plan: not rhabdomyolysis, CK peak was 596. he was hydrated, unfortunately no one could draw his labs yesterday, even though I asked nursing to draw from his iv line. I will ask lab to make one more attempt to repeat his labs today to confirm resolution of his CK and correction of his hypokalemia (7) Hypokalemia: Status: Acute Assessment and plan: will recheck labs today Subjective Subjective Interval history since last seen: Cristobal is becoming more awake. He is still tired but otherwise has no new complaints. Rolando came out last night and has been able to void voluntarily. Patient is refusing telemetry monitoring. Rhythm was sinus last night before he pulled his leads off. Exam Narrative Exam Narrative: Alexander is lying in bed. He had some breakfast but now wants to sleep. He seems to answer question appropriately, he just wants to be left alone Lungs: he has diminished breath sounds at the right lung base, left side he has some rales; anteriorly he is clear Heart; RRR, no murmur Abdomen: soft, nontender Extremities: no edema, normal ROM of all 4's Objective Last Vital Signs Temp 37.9 C H 12/24/22 08:18 Pulse 91 H 12/24/22 08:12 Resp 18 12/24/22 08:12 BP 128/89 12/24/22 08:12 Pulse Ox 96 12/24/22 08:12 Laboratory Results - last 24 hr 12/23/22 12/23/22 12/23/22 05:35 05:35 05:35 WBC Cancelled RBC Cancelled Hgb Cancelled Hct Cancelled MCV Cancelled MCH Cancelled MCHC Cancelled RDW Cancelled Plt Count Cancelled MPV Cancelled Sodium Cancelled Potassium Cancelled Chloride Cancelled Carbon Dioxide Cancelled Anion Gap Cancelled BUN Cancelled Creatinine Cancelled Est GFR (CKD-EPI 2020) Cancelled Glucose Cancelled Calcium Cancelled Phosphorus Cancelled Magnesium Cancelled Total Bilirubin Cancelled AST Cancelled ALT Cancelled Alkaline Phosphatase Cancelled Creatine Kinase Cancelled Total Protein Cancelled Albumin Cancelled Time Spent with Patient Time Spent with Patient: 25-34 minutes Time was spent: preparing to see the patient(eg.review tests), ordering medications,tests, procedures, referring, communicating with other health manager care management, indepentently interpreting results, counseling the patient and care coordination
[2022-12-24] MEDS: Enoxaparin 40 MG/0.4 ML SYR SC (09:02)
[2022-12-24 09:29] LABS: Abs Immature Grans 0.02 10^3/uL (0.0-0.06); Absolute Basophil Count 0.03 10^3/uL (0.0-0.2); Absolute Eosinophil Count 0.21 10^3/uL (0.0-0.7); Absolute Lymphocyte Count 1.75 10^3/uL (1.2-3.4); Absolute Monocyte Count 0.75 10^3/uL (0.1-0.8); Absolute Neutrophil Count 5.69 10^3/uL (1.2-6.7); Basophils % 0.4; Eosinophils % 2.5; HCT 36.3 % (40.0-50.0); HGB 12.3 g/dL (13.5-17.5); Immature Grans % 0.2; Lymphocytes % 20.7; MCH 31.5 pg (27.0-33.0); MCHC 33.9 % (32.0-36.0); MCV 93 fL (80-95); MPV 12.6 fL (8.0-11.0); Monocytes % 8.9; Neutrophils % 67.3; Platelet Count 152 10^3/uL (130-400); RBC 3.91 10^6/uL (4.36-5.78); RDW 12.2 % (11.8-14.1); RDW-SD 41.9 fL; WBC 8.45 10^3/uL (4.4-10.8)
[2022-12-24 09:37] LABS: Magnesium 1.9 mg/dL (1.8-2.4)
[2022-12-24 09:42] LABS: Anion Gap 8.3 mmol/L (3-11); BUN 6 mg/dL (7-18); CO2 25.7 mmol/L (21.0-32.0); CREATININE 0.9 mg/dL (0.70-1.30); Calcium 8.7 mg/dL (8.5-10.1); Chloride 107 mmol/L (98-107); Creatine Kinase 393 U/L (39-308); Estimated GFR 108.68 (mL/min/1.73m2); Glucose 91 mg/dL (74-106); Potassium 3.4 mmol/L (3.5-5.1); Sodium 141 mmol/L (136-145)
--- NOTE | 2022-12-24 11:03 | NUR.NOTE ---
Seizure pads applied to bed at 10:00 a.m.Nursing Note:
[2022-12-24] MEDS: Thiamine 100 MG TAB PO (13:18)
[2022-12-24] MEDS: Potassium Chloride 10 MEQ CAPCR 40 MEQ PO (14:39)
--- NOTE | 2022-12-24 14:56 | PHA.REVIEW2 ---
Pharmacy Admission Review Admission Clinical Review Admission Pharmacy Review: (Updated 12/23/22 @ 13:02 by Naseem Wright MD) Accidental fentanyl overdose (Acute) Elevated CK (Acute) Hypokalemia (Acute) Leukocytosis (Acute) Overdose of cocaine (Acute) Acute encephalopathy (Acute) Aspiration pneumonia (Acute) Acute hyperactive opioid intoxication delirium (Acute) Acute hyperactive cocaine intoxication delirium (Acute) acetaminophen [From Tylenol] Allergy (Unverified 12/23/22 09:16) morphine Allergy (Unverified 12/23/22 09:16) Resuscitation Status Full Code Height 5 ft 8 in Weight 74.4 kg Comments Comments/Follow Ups: polysubstance overdose requiring intubation, now extubated. Required multiple sedating medications s/p intubation, self extubation, agitation (multiple doses of valium; lorazepam, ketamine, midazolam, fentanyl) which caused pt to be somnolent for a period of time but appears to be clearing Pharmacy Admission Review Renal Dosing Renal Dosing: BUN 6 mg/dL (7-18) L 12/24/22 05:33 Creatinine 0.9 mg/dL (0.70-1.30) 12/24/22 05:33 Medications needing adjustments: Reviewed (crcl = 111, no adjustments needed) Anticoagulation Anticoagulation: Hgb 12.3 g/dL (13.5-17.5) L 12/24/22 05:33 Hct 36.3 % (40.0-50.0) L 12/24/22 05:33 Plt Count 152 10^3/uL (130-400) 12/24/22 05:33 Creatinine 0.9 mg/dL (0.70-1.30) 12/24/22 05:33 DVT Prophylaxis: Reviewed Medications: Enoxaparin (40 mg daily) Therapeutic Anticoagulation: N/A Opiate Usage Evaluate Pain Scale/Pains Meds: N/A (prn fentanyl ordered for intubation/sedation, now dc'd) Scheduled Bowel Reg ordered if on Opiates?: No (prn) Relevant Labs Relevant Labs: Sodium 141 mmol/L (136-145) 12/24/22 05:33 Potassium 3.4 mmol/L (3.5-5.1) L 12/24/22 05:33 Chloride 107 mmol/L (98-107) 12/24/22 05:33 Phosphorus Cancelled 12/23/22 05:35 Magnesium 1.9 mg/dL (1.8-2.4) 12/24/22 05:33 Electrolytes, C-Reactive P, ESR: Reviewed DM Control DM Control: N/A Cardiac Review Cardiac Review: Troponin I < 50 ng/L (<or=60) 12/22/22 20:20 BP, HR, EF%: Reviewed QTc Review QTc: Reviewed (QTc = 489 12/22/22, slightly prolonged) List meds needing interventions: has zofran ordered PRN but has not used any. additionally was on propofol which can contribute to QT prolongation, now dc'd IV to PO Switch IV Medications: Reviewed (amp/sulbactam switched to PO amox/clav. Had IV thiamine ordered, now on hold, RN reported lost IV access this afternoon - 100 mg PO daily ordered (did receive IV thiamine 500 mg x 3 bags)) Home Meds Home Med List reviewed: Reviewed (only meds on home med list were acute Rx from ED visit august 2018, now removed from list. No chronic home meds reported) Current Meds Current Medication Order Review: Reviewed Pharmacy Antibiotic Review Pharmacy Antibiotic Activity: 48 hour review and IV to PO Comments: ampicillin/sulbactam started for possible aspiration, now switched to augmentin 875/125 to continue x 5 days total Comments Comments/Follow Ups: polysubstance overdose requiring intubation, now extubated. Required multiple sedating medications s/p intubation, self extubation, agitation (multiple doses of valium; lorazepam, ketamine, midazolam, fentanyl) which caused pt to be somnolent for a period of time but appears to be clearing
--- NOTE | 2022-12-24 17:52 | PT.INIE ---
Date of service: 12/24/22 Time of Service: 15:58 PT Notes Visit Reasons: Acute Respiratory Failure with cocaine and fentany Physical Therapy Inpatient Initial Evaluation Date: 12/24/2022 Referring Doctor: Naseem Elam MD PT Orders: PT CONSULT: Extended stay weakness Precautions: Fall. Standard. Activity as tolerated. Patient Profile/Admitting Diagnosis: Joshua is a 42-year-old male admitted for management of acute encephalopathy, aspiration pneumonia, acute hyperactive opioid intoxication delirium, overdose of cocaine, accidental fentanyl overdose, elevated CK, and hypokalemia. PMHX: All Active Problems?(Updated 12/22/22 @ 22:54 by Matt Paulson) Acute hyperactive opioid intoxication delirium (Acute) Aspiration pneumonia (Acute) Overdose of cocaine (Acute) Acute encephalopathy (Acute) Social History/Home Situation: Independent with all aspects of ADLS prior to admisison Equipment Owned/DME: [facility] Subjective: Complains of being so cold. Appreciated the robe that this PT got for him. Agreeable to trying out walking in the hallway. Objective: General Observation: Sleepy and cold. No lines attached. Mental Status: Oriented as to person, place, time, and purpose. Attention, focus, and responses mildly limited. Pain: Denies Vital Signs: Monitored by nursing staff ROM: Right Upper Extremity: Shoulder Flexion WFL. Shoulder abduction WFL. Elbow flexion WFL. Wrist flexion WFL. Functional opening and closing of hand WFL. Left Upper Extremity: Shoulder Flexion WFL. Shoulder abduction WFL. Elbow flexion WFL. Wrist flexion WFL. Functional opening and closing of hand WFL. Right Lower Extremity: Hip flexion WFL. Hip abduction WFL. Knee flexion WFL. Ankle dorsiflexion WFL. Ankle plantarflexion WFL. Left Lower Extremity: Hip flexion WFL. Hip abduction WFL. Knee flexion WFL. Ankle dorsiflexion WFL. Ankle plantarflexion WFL. Strength: Right Upper Extremity: Shoulder flexors 4/5. Shoulder abductors 4/5. Elbow flexors 5/5. Elbow extensors 5/5. Supervisor Home Energy Consultant strong. Left Upper Extremity: Shoulder flexors 4/5. Shoulder abductors 4/5. Elbow flexors 5/5. Elbow extensors 5/5. Supervisor Home Energy Consultant strong. Right Lower Extremity: Hip flexors 4-/5. Hip abductors 4-/5. Knee flexors 5/5. Knee extensors 4-/5. Ankle dorsiflexors 4/5. Ankle plantarflexors 4/5. Left Lower Extremity: Hip flexors 4-/5. Hip abductors 4-/5. Knee flexors 5/5. Knee extensors 4-/5. Ankle dorsiflexors 4/5. Ankle plantarflexors 4/5. Bed Mobility/Transfers: Rolling independent Supine to sit independent Sit to supine independent Sit to stand independent Stand to sit independent Bed to reclining chair independent Reclining chair to bed independent Gait: Needed guidance and cueing with hallway ambulation to minimize path deviation and encourage safe obstacle negotiation. Covered 400 feet without an assistive device, supervision needed for safety. Gait mildly ataxic. Balance: Static Sitting: Normal Dynamic Sitting: Normal Static Standing: Fair Dynamic Standing: Fair Special Tests: Mobility Limitations Standardized Measure [facility] AM-PAC 6 clicks Basic Mobility Inpatient Short Form: Raw Score: 23 CMS Score: 11% deficit 4-stage Balance Test: Feet together 10 seconds Semi-tandem 3 seconds Full tandem unable One-legged timothy unable Informed Consent/Education: Patient was instructed in purpose of PT consult and plan of care. Agreeable to proceed with established PT POC to achieve personal goals. ASSESSMENT: Independent inside room. Supervision in the hallway without AD. Patient presents with clinical signs and symptoms consistent with current/admitting diagnoses that have resulted to mobility limitations, gait instability, generalized weakness, and overall ADL decline as demonstrated by the following impairment level findings: 1. Decreased strength to B UE/LE major muscle groups 2. Impaired standing balance 3. Impaired activity tolerance Impairments are contributing to the following functional limitations: 1. Increased completion time for mobility ADL performance 2. Increased risk for falls 3. Difficulty with managing steps alone safely Patient is [place] a 66716 low complexity based on the following: History: 42-year-old male with past medical history as indicated above Examination: Demonstrable impairment in strength, balance, and mobility level with underlying impairments and functional limitations as exhibited above as well as deficit score of 11% utilizing the [facility] Mobility Inpatient Short Form Presentation: Evolving Decision Makin low complexity Goals: Goals X1 week 1. Independent gait on level surface with use of no AD for at least 1000 feet without report of pain nor dyspnea 2. Independent stair negotiation while holding onto B rails for at least 5 steps without report of pain nor dyspnea 3. Independent with home exercise program 4. Normal static and dynamic standing balance/tolerance Plan of Care/Treatment Plan: 1-2x/day, 7 days/week x 1 week. Plan of care has been reviewed with the CRIMINAL JUSTICE PROGRAM DIRECTOR providing the service under Physical Therapy direction. Initiate Physical Therapy intervention for pain management as needed, strengthening, bed mobility, transfers, gait, stairs, balance training, and use of assistive device. DISCHARGE RECOMMENDATIONS: [] Home with no services [] [X] Home with services. Patient will benefit from home health PT services in order to progress mobility level using least restrictive assistive ambulatory device, assess home safety, identify additional equipment needs, and establish a functional maintenance program that will increase ability of patient to remain at home. [] Home with outpatient PT [] [] SNF for continued rehabilitation [] [] Senior Living Care [] [] SNF versus LTC based on ability to participate and progress [] TREATMENT CODE/TIME: 32248 x 18 minutes beginning at 15:58 PM. Thank you for the opportunity to participate in the care of this patient. Marlyn Mccormack PT, DPT, CLT [facility] [place], [place]
--- NOTE | 2022-12-24 20:00 | W.PM.DS.N ---
Date of service: 12/24/22 Time of Service: 20:00 DS: Diagnosis Discharge Diagnosis (1) Acute encephalopathy: Status: Acute (2) Aspiration pneumonia: Status: Acute (3) Acute hyperactive opioid intoxication delirium: Status: Acute (4) Overdose of cocaine: Status: Acute (5) Accidental fentanyl overdose: Status: Acute (6) Elevated CK: Status: Acute (7) Hypokalemia: Status: Acute Discharge Plan Disposition Patient Disposition: Against Medical Advice Condition: Improving Discharge Details Reason For Visit: Acute Respiratory Failure with cocaine and fentany Admit Date/Time: 12/22/22 21:43 Admit Provider: Matt Paulson Attending Provider: Matt Paulson Primary Care Provider: Unknown,Unknown Hospital Course Hospital Course: 42-year-old male brought into the emergency department via EMS as a severe 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 He initially responded to nasal Narcan but then became severely agitated and combative and required several doses of Valium as well as being given a loading dose of Keppra for possible seizure. Patient eventually required intubation and sedation because of severe agitation and because of having received multiple doses of Valium was placed on a propofol drip. He was admitted to the intensive care unit. He apparently had history of fentanyl abuse as well as cocaine use. There is some question whether he had an aspiration event or not and was started on Unasyn empirically for possible aspiration pneumonia. His urine drug screen was positive for cocaine as well as benzodiazepines. Ethanol acetaminophen level was negative and salicylate was negligible at 5.5. Patient did have hypokalemia but no renal insufficiency CK level was normal at first of 295 but then rachel to as high as 596 before declining down to 393. Troponin I level was less than 50x2. CT imaging included chest x-ray on admission that showed no acute infiltrates. CT of his head showed no acute intracranial findings. Patient was admitted to the intensive care unit where he was kept on mechanical ventilation but patient subsequently self extubated. He was then monitored for the next day and gradually became more arousable by the afternoon of December 24, 2022 patient was alert and oriented and decided to leave the hospital. Patient did not wait until we could complete a safe discharge. However earlier in the morning he seemed to be able to tolerate a diet although he was still somnolent in the morning but by the afternoon he had become quite alert. Patient was treated with Unasyn but did not wait around long enough to get an outpatient prescription for Augmentin. Discharge Instructions Activity:: Activity as Tolerated Equipment/Supplies:: No Equipment Needed Diet:: Normal Diet Discharge Data Discharge Date/Time-TO BE ENTERED AT DEPARTURE: 12/24/22 17:03 DS: Summary Time Spent with Patient providing and/or coordinating discharge services: Less than 30 minutes Status at Discharge Functional status at discharge: independent ambulation Overall status at discharge: patient is back to baseline Mental Status: mental status grossly normal Speech and Movement: speech and movement normal Mood: congruent mood Affect: normal affect Exam Psych Mental Status: mental status grossly normal Speech and Movement: speech and movement normal Mood: congruent mood Affect: normal affect DS: Data Vitals/I&O Vitals and I&O: Vital Signs Temperature 37.3 C 12/24/22 15:11 Temperature Source Tympanic 12/24/22 15:11 Pulse 95 H 12/24/22 15:11 Pulse Rhythm Regular 12/24/22 15:15 Pulse 98 H 12/23/22 11:30 Respiratory Rate 19 12/24/22 15:11 Respiratory Effort Normal, Non-Labored 12/24/22 15:15 Respiratory Depth Normal 12/24/22 15:15 Respiratory Pattern Normal 12/24/22 15:15 Blood Pressure 131/76 12/24/22 15:11 Blood Pressure Mean 100 12/24/22 08:05 Blood Pressure Position Supine 12/24/22 05:20 Pulse Oximetry 99 12/24/22 15:11 Respiratory End-tidal CO2 40 12/23/22 01:00 Oxygen Delivery Method Room Air 12/24/22 15:11 Oxygen Flow Rate 0 12/24/22 15:11 Fraction of Inspired Oxygen (FIO2) 30 12/23/22 01:54 End Tidal Co2 32 12/22/22 18:22 Pain Level 2 12/24/22 15:11 Intake & Output 12/23/22 12/24/22 12/24/22 23:59 11:59 23:59 Intake Total 560 / 1760 2445.417 / 2445.417 Output Total 800 / 1600 2325 / 2325 Balance -240 / 160 120.417 / 120.417 Weight 74.4 kg Intake: IV 320 / 1520 1365.417 / 1365.417 Oral 240 / 240 1080 / 1080 Output: Urine 800 / 1400 2325 / 2325 Other: Urine Color Light Sabine Yellow Urine Appearance Clear Clear Clear Urine Odor None Comment cerda is patent cerda d/c unknown amount in toilet, pT flushed Stool Size Large Stool Characteristics Hard Brown Voiding Methods Urinal Toilet Data Completed and Pending Labs on day of discharge: Labs from last 24 hours 12/24/22 12/24/22 12/24/22 05:33 05:33 05:33 WBC 8.45 RBC 3.91 L Hgb 12.3 L Hct 36.3 L MCV 93 D MCH 31.5 MCHC 33.9 RDW 12.2 Plt Count 152 MPV 12.6 H Immature Gran % 0.2 Neutrophils % 67.3 Lymphocytes % 20.7 Monocytes % 8.9 Eosinophils % 2.5 Basophils % 0.4 Nucleated RBC % 0.0 Absolute Neutrophils 5.69 Absolute Lymphocytes 1.75 Absolute Monocytes 0.75 Absolute Eosinophils 0.21 Absolute Basophils 0.03 Sodium 141 Potassium 3.4 L Chloride 107 Carbon Dioxide 25.7 Anion Gap 8.3 BUN 6 L Creatinine 0.9 Est GFR (CKD-EPI 2020) 108.68 Glucose 91 Calcium 8.7 Magnesium 1.9 Creatine Kinase 393 H PFSH All Active Problems (Updated 12/23/22 @ 13:02 by Naseem Wright MD) Accidental fentanyl overdose (Acute) Elevated CK (Acute) Hypokalemia (Acute) Leukocytosis (Acute) Overdose of cocaine (Acute) Acute encephalopathy (Acute) Aspiration pneumonia (Acute) Acute hyperactive opioid intoxication delirium (Acute) Acute hyperactive cocaine intoxication delirium (Acute) Agitation requiring sedation protocol (Acute) Social History (System 12/23/22 @ 09:16 by Amelia Almendarez) Smoking/Tobacco Use Status: Current every day Tobacco Type: cigarettes Smoking risk assessment performed?: Yes Drug use: Rarely Substance use type: marijuana and crack/cocaine Time Spent with Patient Time Spent with Patient: <45 minutes Time was spent: other (Documentation of hospital course)
--- NOTE | 2022-12-26 07:32 | PT.INDS ---
PT Notes Visit Reasons: Acute Respiratory Failure with cocaine and fentany Patient seen for single PT visit prior to leaving hospital AMA. No further services were provided and assessment of functional mobility can be found noted in PT evaluation note.
== END 2022-12-24 17:03 | disposition left against medical advice (07) | DRG 917 ==
LOC: ER 22:36 → ICU 22:38 → MS 12-24 10:48
PROVIDERS: Internal Medicine; Admitting Provider Family Medicine; Emergency Provider Emergency Medicine; Visit Provider Family Medicine
DX: T40.5X1A Poisoning by cocaine, accidental (unintentional), initial encounter (principal); G92.8 Other toxic encephalopathy; J69.0 Pneumonitis due to inhalation of food and vomit; F14.121 Cocaine abuse with intoxication with delirium; F11.121 Opioid abuse with intoxication delirium; E87.6 Hypokalemia; D72.829 Elevated white blood cell count, unspecified; T40.411A Poisoning by fentanyl or fentanyl analogs, accidental (unintentional), initial encounter; R09.02 Hypoxemia; R79.89 Other specified abnormal findings of blood chemistry; Z78.1 Physical restraint status
CPT/HCPCS: 31500; 36415; 36416; 51702; 76604; 80048; 80053; 80307; 82550; 82805; 82962; 85027; 93005; 96365; 96366; 96375; 96376; 97162; 99291; 99292; J1650; 70450; 71045; 80320; 80329; 81003; 83735; 84100; 84484; 85025; 93010; 94002; 99223; 99232; 99238; J0295; J1170; J1953; J2060; J2250; J2704; J3010; J3360

== ENCOUNTER 2022-12-28 04:35 | Emergency (ER) | payer MEDICARE, SELFPAY ==
[2022-12-28 04:38] VITALS: BP 121/75; PULSE 94; RESP 14; TEMP 36.8; O2SAT 100
--- NOTE | 2022-12-28 04:47 | ED.GENADUL_ITS ---
Discharge Plan Disposition Patient Disposition: Home Condition: Stable Discharge Details Clinical Impression: Cellulitis of arm, left Primary Care Provider: Unknown,Unknown ED Provider: Deven Medrano Home Meds and New Rx's Prescriptions: New amoxicillin-pot clavulanate 875-125 mg tablet 1 tab PO BID Qty: 14 0RF Discharge Instructions Instructions: Cellulitis (ED) Additional Instructions: If not better within a week follow up with your primary care provider if you feel more ill or have significant spreading of the redness return to the emergency department Medical Decision Making 42 yo male with hx of substance abuse, recent admission and d/c after he presented agitated and altered secondary to drug use and required intubaiton, comes in with left arm redness near where he had an IV while he was admitted. Denies high fevers, drainage. HE is stable on arrival and appears well in no distress. He has a 3x4cm area of erythema over the left bicep, mildly warm to touch, no crepitus, no drainage or fluctuance. Exam consistent with cellulitis, no findings on history or exam to suggest sepsis or nec fasc. Will start on augmentin and advised to f/u with his pcp, return precautions given Differential Diagnosis Differential Diagnosis: cellulitis, dermatitis Medical Records Medical records reviewed: Yes I reviewed the patient's medical records. HPI General Mode of arrival: ambulatory . Date/Time Provider Initiated Documentation: 12/28/22 04:36 . Limitations to Documentation: no limitations . Information obtained by: patient . History of Present Illness 42 year old M presents to the emergency department with the chief complaint of left arm redness, described as mild, Quality is described as aching, and is localized to the left and upper extremity. Patient reports no radiation. Patient started experiencing this day(s) (3) and it has been constant. No relieving factors improve symptom(s), No exacerbating factors reported . Patient notes no other symptoms.. Patient did receive the following treatments prior to arrival, none Related Data Home Medications Medication Instructions Recorded Confirmed amoxicillin 875 mg-potassium 1 tab PO BID #14 tabs 12/28/22 clavulanate 125 mg tablet Previous Rx's Medication Instructions Recorded amoxicillin 875 mg-potassium 1 tab PO BID #14 tabs 12/28/22 clavulanate 125 mg tablet Allergies Allergy/AdvReac Type Severity Reaction Status Date / Time acetaminophen [From Tylenol] Allergy Unverified 12/28/22 04:43 morphine Allergy Unverified 12/28/22 04:43 General Stated Complaint: Cellulitis HUMBERTO: 3 Review of Systems All systems reviewed & are unremarkable except as noted in HPI and below Constitutional Constitutional: Denies chills, Denies fever(s) and Denies weakness Cardiovascular Cardiovascular: Denies chest pain and Denies dyspnea Respiratory Respiratory: Denies cough and Denies dyspnea Gastrointestinal Gastrointestinal: Denies abdominal pain, Denies nausea and Denies vomiting Integumentary/Breasts Skin/Breast: Reports rash Neurologic Neurologic: Denies weakness PFS All Active Problems (Updated 12/28/22 @ 04:48 by Deven Medrano MD) Cellulitis of arm, left (Acute) Accidental fentanyl overdose (Acute) Elevated CK (Acute) Hypokalemia (Acute) Leukocytosis (Acute) Overdose of cocaine (Acute) Acute encephalopathy (Acute) Aspiration pneumonia (Acute) Acute hyperactive opioid intoxication delirium (Acute) Acute hyperactive cocaine intoxication delirium (Acute) Agitation requiring sedation protocol (Acute) Social History (System 12/23/22 @ 09:16 by Amelia Almendarez) Smoking/Tobacco Use Status: Current every day Tobacco Type: cigarettes Smoking risk assessment performed?: Yes Alcohol Intake: never Drug use: Rarely Substance use type: marijuana and crack/cocaine Do you feel safe at home: Yes Do you feel safe in your relationship?: Yes Exam Const General: no acute distress Orientation: alert HENMT Head: normal to inspection Ears: external ears normal General nose exam: external nose normal Mouth: moist mucous membranes Eyes General: appearance normal, both eyes and all related structures Neck Neck: normal visual inspection Resp Effort & Inspection: normal respiratory effort and able to speak in complete sentences Cardio Rate: regular rate Skin General skin exam: elasticity normal Neuro General: patient alert and patient oriented x3 Extrem General: full ROM and capillary refill normal Psych Mental Status: mental status grossly normal Course Vital Signs Vital signs: Vital Signs Temperature 36.8 C 12/28/22 04:38 Pulse 94 H 12/28/22 04:38 Respiratory Rate 14 12/28/22 04:38 Blood Pressure 121/75 12/28/22 04:38 Pulse Oximetry 100 12/28/22 04:38 Temperature 36.8 C 12/28/22 04:38 Temperature Source Oral 12/28/22 04:38 Pulse 94 H 12/28/22 04:38 Respiratory Rate 14 12/28/22 04:38 Respiratory Effort Normal, Non-Labored 12/28/22 04:44 Blood Pressure 121/75 12/28/22 04:38 Blood Pressure Position Sitting 12/28/22 04:38 Pulse Oximetry 100 12/28/22 04:38 Oxygen Delivery Method Room Air 12/28/22 04:38 Oxygen Flow Rate 0 12/28/22 04:38 Pain Level 6 12/28/22 04:38
[2022-12-28] MEDS: Amoxicillin 875/Clav. 125 TAB PO (04:51)
== END 2022-12-28 04:52 | disposition home or self-care (01) ==
PROVIDERS: Emergency Provider Emergency Medicine
DX: L03.114 Cellulitis of left upper limb (principal); F17.210 Nicotine dependence, cigarettes, uncomplicated
CPT/HCPCS: 99282

== ENCOUNTER 2023-01-05 06:56 | Emergency (ER) | payer MEDICARE, SELFPAY ==
[2023-01-05 07:02] VITALS: BP 138/76; PULSE 83; TEMP 36.6; O2SAT 98
--- NOTE | 2023-01-05 07:30 | DI.CT_ITS ---
Exam(s) CT THORACIC SPINE WO EXAM: CT THORACIC SPINE WO CLINICAL HISTORY: pain s/p fall. TECHNIQUE: Imaging Protocol: Axial computed tomography images with coronal and sagittal reformatted images were created and reviewed. CONTRAST MATERIAL: Noncontrast COMPARISON: CR,XR XR PORTABLE CHEST AP from 12/22/2022 FINDINGS: The exam is limited by motion. Bones: No fractures or dislocations are seen. The alignment of the spine is normal including the cerv icothoracic junction. Soft tissues: The soft tissues of the chest are unremarkable. No large disk herniations are identifie d. IMPRESSION: Limited exam due to motion. No evidence of fracture. RADIATION DOSE DELIVERED: 1373.94 mGy.cm Total DLP DATA REPOSITORY: All CT scans at this facility are submitted to the National Radiology Data Registry (NRDR) Dose Index Registry (DIR) with the [employer] ([employer]). RADIATION OPTIMIZATION: All CT scans at this facility use at least one of these dose optimization te chniques: automated exposure control; mA and/or kV adjustment per patient size (includes targeted exa ms where dose is matched to clinical indication); or iterative reconstruction.
--- NOTE | 2023-01-05 07:30 | DI.CT_ITS ---
Exam(s) CT CERVICAL SPINE WO EXAM: CT CERVICAL SPINE WO CLINICAL HISTORY: pain s/p fall. TECHNIQUE: Imaging Protocol: Axial computed tomography images with coronal and sagittal reformatted images were created and reviewed CONTRAST MATERIAL: Noncontrast COMPARISON: CT CT THORACIC SPINE WO from 01/05/2023 FINDINGS: Exam is limited by motion. Bones: No fracture or dislocations are seen. The alignment of the cervical spine is normal including the cervicovertebral junction and cervicothoracic junction. There has been previous surgery with d isc spacers seen at C5-6 and C6-7. 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 Soft Tissues: The soft tissues of the neck are unremarkable. No large disk herniations are identified . The visualized portions of the lung apices are clear. No pneumothorax is seen. IMPRESSION: Limited by motion. Postsurgical changes. No acute abnormality. RADIATION DOSE DELIVERED: Total DLP DATA REPOSITORY: All CT scans at this facility are submitted to the National Radiology Data Registry (NRDR) Dose Index Registry (DIR) with the [employer] ([employer]). RADIATION OPTIMIZATION: All CT scans at this facility use at least one of these dose optimization te chniques: automated exposure control; mA and/or kV adjustment per patient size (includes targeted exa ms where dose is matched to clinical indication); or iterative reconstruction.
--- NOTE | 2023-01-05 07:36 | ED.GENADUL_ITS ---
Discharge Plan Disposition Patient Disposition: Home Condition: Stable Discharge Details Clinical Impression: Upper back pain, Neck pain, Muscle spasm Primary Care Provider: Unknown,Unknown ED Provider: Deven Medrano Home Meds and New Rx's Prescriptions: Discontinued amoxicillin-pot clavulanate 875-125 mg tablet 1 tab PO BID Qty: 14 0RF Patient Comments: PT states he didn't take this medication ML 01/05/23 Discharge Instructions Instructions: Muscle Spasm (ED) Additional Instructions: follow up with your primary care provider in 1-2 weeks if pain continues if you feel more ill, develop high fevers or new symptoms such as chest pain return to the emergency department Medical Decision Making 42 yo male with hx of substance abuse comes in with chief complaint of 2 days of right lower neck and upper back pain. STates he had a fall from standing 2 weeks ago and the pain started 2 days ago. Denies fevers, chills, chest pain, headaches, throat pain, dyspnea. HE arrives appearing in pain, caox4. He has tenderness to the right lower lateral neck and right upper thoracic spine. Intact sensation and pulses in the extremities. Muscle in the right lower neck does feel firm so suspect spasm. Will obtain ct c spine and thoracic spine to rule out fracture and treat with valium. HE has no fevers and is tender over the neck muscle so doubt spinal epidural abscess. Pt's imaging negative, pt now sleeping, awakens easily to voice and states pain dramatically improved. Do not feel additional imaging or testing indicated given rapid improvement with valium suspect muscle spasm. He will f/u with his pcp, return precautions given. He was seen recently for a possible left arm cellulitis related to an IV he had while hospitalized, he has no redness of the arm and no findings to suggest continued cellulitis, he never started the augmentin and advised he doesn't need to at this point Differential Diagnosis Differential Diagnosis: muscle spasm, fracture Medical Records Medical records reviewed: Yes I reviewed the patient's medical records. Imaging Data Radiologic Study: Attestation: I personally reviewed and interpreted this imaging study as follows: Imaging: CT Scan Radiologist's impression: no acute findings on Cervical or thoracic spine HPI General Date/Time Provider Initiated Documentation: 01/05/23 07:01 . Limitations to Documentation: no limitations . Information obtained by: patient . History of Present Illness 42 year old M presents to the emergency department with the chief complaint of neck pain, described as severe, Quality is described as aching, Patient reports no radiation. Patient started experiencing this day(s) (2) and it has been constant. No relieving factors improve symptom(s), No exacerbating factors reported . Patient notes denies chest pain and shortness of breath. Patient did receive the following treatments prior to arrival, none Related Data Allergies Allergy/AdvReac Type Severity Reaction Status Date / Time acetaminophen [From Tylenol] Allergy Unverified 01/05/23 07:12 morphine Allergy Unverified 01/05/23 07:12 General Stated Complaint: Nk/Back Pain HUMBERTO: 3 Review of Systems All systems reviewed & are unremarkable except as noted in HPI and below Constitutional Constitutional: Denies chills, Denies fever(s) and Denies weakness Cardiovascular Cardiovascular: Denies chest pain and Denies dyspnea Respiratory Respiratory: Denies cough and Denies dyspnea Gastrointestinal Gastrointestinal: Denies abdominal pain, Denies nausea and Denies vomiting Musculoskeletal Musculoskeletal: Denies joint swelling Neurologic Neurologic: Denies weakness PFSH All Active Problems (Updated 01/05/23 @ 08:46 by Deven Medrano MD) Cellulitis of arm, left (Acute) Upper back pain (Acute) Neck pain (Acute) Muscle spasm (Acute) Accidental fentanyl overdose (Acute) Elevated CK (Acute) Hypokalemia (Acute) Leukocytosis (Acute) Overdose of cocaine (Acute) Acute encephalopathy (Acute) Aspiration pneumonia (Acute) Acute hyperactive opioid intoxication delirium (Acute) Acute hyperactive cocaine intoxication delirium (Acute) Agitation requiring sedation protocol (Acute) Social History (System 12/23/22 @ 09:16 by Amelia Almendarez) Smoking/Tobacco Use Status: Current every day Tobacco Type: cigarettes Smoking risk assessment performed?: Yes Alcohol Intake: never Drug use: Rarely Substance use type: marijuana and crack/cocaine Housing: apartment Do you feel safe at home: Yes Do you feel safe in your relationship?: Yes Exam Const Orientation: alert HENMT Head: normal to inspection Ears: external ears normal General nose exam: external nose normal Mouth: moist mucous membranes Eyes General: appearance normal, both eyes and all related structures Neck Neck: normal visual inspection Resp Effort & Inspection: normal respiratory effort and able to speak in complete se ntences Auscultation: clear to auscultation bilaterally Cardio Jugular venous pressure: no JVD Rate: regular rate Heart Sounds: no murmurs GI Palpation: soft and nontender Back/Spine/Pelvis Back: no CVA tenderness Skin General skin exam: no rashes or lesions noted Neuro General: patient alert and patient oriented x3 Extrem General: normal to inspection Psych Mental Status: mental status grossly normal Course Vital Signs Vital signs: Vital Signs Temperature 36.6 C 01/05/23 07:02 Pulse 83 01/05/23 07:02 Blood Pressure 138/76 01/05/23 07:02 Pulse Oximetry 98 01/05/23 07:02 Temperature 36.6 C 01/05/23 07:02 Temperature Source Temporal Artery Scan 01/05/23 07:02 Pulse 83 01/05/23 07:02 Respiratory Effort Non-Labored 01/05/23 07:07 Blood Pressure 138/76 01/05/23 07:02 Blood Pressure Position Supine 01/05/23 07:02 Pulse Oximetry 98 01/05/23 07:02 Oxygen Delivery Method Room Air 01/05/23 07:02 Oxygen Flow Rate 0 01/05/23 07:02 Pain Level 9 01/05/23 07:09 PAWSS Have you Been Recently Intoxicated or Drunk Within the Last 30 days?: No Have you Ever Experienced Previous Episodes of Alcohol Withdrawal?: No Have you ever Experienced Withdrawal Seizures?: No Have you ever Experienced Delirium Tremens(DT)s?: No Have you ever undergone Alcohol Rehabilitation Treatment (i.e, inpt ot outpatient treatment programs)?: No Have you ever Experienced Blackouts?: No Have you ever Combined Alcohol with other Downers within the last 90 days?: No Have you ever Combined Alcohol with any other Substance of Abuse during the last 90 days?: No Positive Blood Alcohol level on Presentation? [PCS.BAL]: No Evidence of Increased Autonomic Activity (i.e. HR>120, tremor, sweating, agitation, nausea)?: No Result: 0
[2023-01-05] MEDS: diazePAM 10 MG/2 ML SYR IM (07:43)
[2023-01-05] MEDS: Cyclobenzaprine 10 MG TAB, 3 TABS/BTL PO (09:06)
== END 2023-01-05 09:12 | disposition home or self-care (01) ==
PROVIDERS: Emergency Provider Emergency Medicine
DX: M54.2 Cervicalgia (principal); M54.6 Pain in thoracic spine; M62.830 Muscle spasm of back; F17.210 Nicotine dependence, cigarettes, uncomplicated
CPT/HCPCS: 96372; 99284; 72125; 72128; J3360

== ENCOUNTER 2023-04-21 23:57 | Emergency (ER) | payer MEDICARE, SELFPAY ==
[2023-04-21 23:56] VITALS: BP 120/81; PULSE 92; RESP 18; TEMP 36.6; O2SAT 97
--- NOTE | 2023-04-22 00:15 | ED.GENADUL_ITS ---
HPI General Stated Complaint: GenMedical Mode of arrival: EMS. HUMBERTO: 3 Date/Time Provider Initiated Documentation: 04/21/23 23:59. Limitations to Documentation: no limitations. Information obtained by: patient. History of Present Illness lesions/wounds moderate aching reports no radiation day(s) (3) constant No relieving factors improve symptom(s), No exacerbating factors reported no other symptoms.; denies fever/chills none Related Data Home Medications Medication Instructions Recorded Confirmed amoxicillin 875 mg-potassium 1 tab PO BID #14 tabs 04/22/23 clavulanate 125 mg tablet sulfamethoxazole 800 1 tab PO BID #14 tabs 04/22/23 mg-trimethoprim 160 mg tablet (Bactrim DS) Previous Rx's Medication Instructions Recorded amoxicillin 875 mg-potassium 1 tab PO BID #14 tabs 04/22/23 clavulanate 125 mg tablet sulfamethoxazole 800 1 tab PO BID #14 tabs 04/22/23 mg-trimethoprim 160 mg tablet (Bactrim DS) Allergies Allergy/AdvReac Type Severity Reaction Status Date / Time acetaminophen [From Tylenol] Allergy Unverified 01/05/23 07:12 morphine Allergy Unverified 01/05/23 07:12 peanut Allergy Unverified 04/22/23 00:32 Review of Systems All systems reviewed & are unremarkable except as noted in HPI and below Constitutional Constitutional: Denies chills, Denies fever(s) and Denies weakness Cardiovascular Cardiovascular: Denies chest pain and Denies dyspnea Respiratory Respiratory: Denies cough and Denies dyspnea Gastrointestinal Gastrointestinal: Denies abdominal pain, Denies nausea and Denies vomiting Integumentary/Breasts Skin/Breast: Reports wounds Neurologic Neurologic: Denies weakness [facility] All Active Problems (Updated 04/22/23 @ 00:19 by Deven Medrano MD) Skin lesion (Acute) Accidental fentanyl overdose (Acute) Elevated CK (Acute) Hypokalemia (Acute) Leukocytosis (Acute) Overdose of cocaine (Acute) Acute encephalopathy (Acute) Aspiration pneumonia (Acute) Acute hyperactive opioid intoxication delirium (Acute) Acute hyperactive cocaine intoxication delirium (Acute) Agitation requiring sedation protocol (Acute) Social History (System 12/23/22 @ 09:16 by Amelia Almendarez) Smoking/Tobacco Use Status: Current every day Tobacco Type: cigarettes Smoking risk assessment performed?: Yes Alcohol Intake: never Drug use: Never Housing: homeless Do you feel safe at home: Yes Do you feel safe in your relationship?: Yes PAWSS Have you Been Recently Intoxicated or Drunk Within the Last 30 days?: No Have you Ever Experienced Previous Episodes of Alcohol Withdrawal?: No Have you ever Experienced Withdrawal Seizures?: No Have you ever Experienced Delirium Tremens(DT)s?: No Have you ever undergone Alcohol Rehabilitation Treatment (i.e, inpt ot outpatient treatment programs)?: No Have you ever Experienced Blackouts?: No Have you ever Combined Alcohol with other Downers within the last 90 days?: No Have you ever Combined Alcohol with any other Substance of Abuse during the last 90 days?: No Positive Blood Alcohol level on Presentation? [PCS.BAL]: Unable to Obtain Evidence of Increased Autonomic Activity (i.e. HR>120, tremor, sweating, agitation, nausea)?: No Result: 0 Exam Const General: no acute distress Orientation: alert HENMT Head: normal to inspection Ears: external ears normal General nose exam: external nose normal Mouth: moist mucous membranes Eyes General: appearance normal, both eyes and all related structures Neck Neck: normal visual inspection Resp Effort & Inspection: normal respiratory effort and able to speak in complete sentences Cardio Rate: regular rate Skin General skin exam: elasticity normal Lesions: lesion noted Neuro General: patient alert and patient oriented x3 Extrem General: normal to inspection Psych Mental Status: mental status grossly normal Course Vital Signs Vital signs: Vital Signs Temperature 36.6 C 04/21/23 23:56 Pulse 92 H 04/21/23 23:56 Respiratory Rate 18 04/21/23 23:56 Blood Pressure 120/81 04/21/23 23:56 Pulse Oximetry 97 04/21/23 23:56 Temperature 36.6 C 04/21/23 23:56 Temperature Source Temporal Artery Scan 04/21/23 23:56 Pulse 92 H 04/21/23 23:56 Respiratory Rate 18 04/21/23 23:56 Respiratory Effort Normal 04/22/23 00:01 Blood Pressure 120/81 04/21/23 23:56 Pulse Oximetry 97 04/21/23 23:56 Oxygen Delivery Method Room Air 04/21/23 23:56 Oxygen Flow Rate 0 04/21/23 23:56 Pain Level 8 04/21/23 23:56 Medical Decision Making 42 yo male with prior history of substance abuse who denies current use comes in with several days of wounds on his arms and legs. Denies fevers/chills. He denies any known trauma or insect bites. HE has multiple small 1-2cm skin excoriations on his arms and legs that have the appearance of self picking lesions. There is one lesion on his mid lateral lower leg and left lateral medial thigh that have mild surround erythema approximately 3mm around the wo und. No drainage, no crepitus. Appears well in no distress. Given two of the lesions have surrounding erythema will start oral antibiotics, appears well without fevers/chills and has no crepitus so doubt nec fasc. He is stable for d/c, will have him f/u with pcp and return precautions given Differential Diagnosis Differential Diagnosis: self pick wounds, cellulitis Quality:SDOH Health Related Social Needs: No Data to Display Discharge Plan Disposition Patient Disposition: Home Condition: Stable Discharge Details Clinical Impression: Skin lesion ED Provider: Deven Medrano Home Meds and New Rx's Prescriptions: New sulfamethoxazole-trimethoprim [Bactrim DS] 800-160 mg tablet 1 tab PO BID Qty: 14 0RF amoxicillin-pot clavulanate 875-125 mg tablet 1 tab PO BID Qty: 14 0RF Discharge Instructions Additional Instructions: keep the wounds clean and avoid any trauma to the skin to create new wounds follow up with your primary care provider within 1-2 weeks especially if not improving if you feel more ill, have severe worsening pain or fevers return to the emergency department
[2023-04-22] MEDS: Sulfameth/Trimeth DS TAB 1 TAB PO (00:28)
[2023-04-22] MEDS: Ibuprofen 600 MG TAB PO (00:28)
[2023-04-22] MEDS: Amoxicillin 875/Clav. 125 TAB PO (00:28)
--- NOTE | 2023-04-22 02:01 | NUR.NOTE ---
PT restingNursing Note:
--- NOTE | 2023-04-22 04:14 | NUR.NOTE ---
Ptr given urinal and snacks Nursing Note:
[2023-04-22 06:09] VITALS: PULSE 82; RESP 18; O2SAT 97
== END 2023-04-22 06:34 | disposition home or self-care (01) ==
LOC: ER 04-22 03:24
PROVIDERS: Emergency Provider Emergency Medicine
DX: L98.9 Disorder of the skin and subcutaneous tissue, unspecified (principal); Z86.59 Personal history of other mental and behavioral disorders
CPT/HCPCS: 99283

== ENCOUNTER 2023-04-30 19:29 | Emergency (ER) | payer MEDICARE, SELFPAY ==
[2023-04-30 19:32] VITALS: BP 137/70; PULSE 102; RESP 16; TEMP 37.2; O2SAT 97
--- NOTE | 2023-04-30 19:45 | DI.CT_ITS ---
Exam(s) CT LOWER EXTREMITY RT W EXAM: CT LOWER EXTREMITY RT W CLINICAL HISTORY: cellulitis right loewr extremity. TECHNIQUE: Imaging Protocol: Axial computed tomography images with coronal and sagittal reformatted images were created and reviewed. Field of view: Right knee and calf CONTRAST MATERIAL: Intravenous: Omnipaque 350 Contrast volume:100 mL contrast route:IV - COMPARISON: No exams were available for comparison FINDINGS: SOFT TISSUES: There is no evidence of knee joint effusion. There is a cellulitis pattern. Most sign ificant subcutaneous edema is over the distal medial calf and ankle. There is no formed peripherally enhancing abscess. OSSEOUS: There are no fractures. No evidence of osteomyelitis. No osseous lesions. IMPRESSION: Cellulitis pattern. Most prominent subcutaneous soft tissue edema is in the distal medial calf and m edial aspect of the ankle. No formed abscess. There are no fractures and no evidence of osteomyelitis. There is no radiopaque foreign body. RADIATION DOSE DELIVERED: 1,183.5mGy.cm Total DLP DATA REPOSITORY: All CT scans at this facility are submitted to the National Radiology Data Registry (NRDR) Dose Index Registry (DIR) with the [employer] ([employer]). RADIATION OPTIMIZATION: All CT scans at this facility use at least one of these dose optimization te chniques: automated exposure control; mA and/or kV adjustment per patient size (includes targeted exa ms where dose is matched to clinical indication); or iterative reconstruction.
--- NOTE | 2023-04-30 19:55 | ED.GENADUL_ITS ---
HPI General Stated Complaint: Cellulitis HUMBERTO: 3 Date/Time Provider Initiated Documentation: 04/30/23 19:42. Limitations to Documentation: no limitations. Information obtained by: patient. History of Present Illness right leg redness moderate week(s) (1) constant No relieving factors improve symptom(s), No exacerbating factors reported denies fever/chills none Related Data Home Medications Medication Instructions Recorded Confirmed amoxicillin 875 mg-potassium 1 tab PO BID #14 tabs 04/30/23 clavulanate 125 mg tablet sulfamethoxazole 800 1 tab PO BID #14 tabs 04/30/23 mg-trimethoprim 160 mg tablet (Bactrim DS) Previous Rx's Medication Instructions Recorded amoxicillin 875 mg-potassium 1 tab PO BID #14 tabs 04/30/23 clavulanate 125 mg tablet sulfamethoxazole 800 1 tab PO BID #14 tabs 04/30/23 mg-trimethoprim 160 mg tablet (Bactrim DS) Allergies Allergy/AdvReac Type Severity Reaction Status Date / Time acetaminophen [From Tylenol] Allergy Unverified 01/05/23 07:12 morphine Allergy Unverified 01/05/23 07:12 peanut Allergy Unverified 04/22/23 00:32 Review of Systems All systems reviewed & are unremarkable except as noted in HPI and below Constitutional Constitutional: Denies chills, Denies fever(s) and Denies weakness Cardiovascular Cardiovascular: Denies chest pain and Denies dyspnea Respiratory Respiratory: Denies cough and Denies dyspnea Gastrointestinal Gastrointestinal: Denies abdominal pain, Denies nausea and Denies vomiting Genitourinary Genitourinary: Denies dysuria Neurologic Neurologic: Denies weakness [facility] All Active Problems (Updated 04/30/23 @ 21:44 by Deven Medrano MD) Cellulitis of leg, right (Acute) Skin lesion (Acute) Accidental fentanyl overdose (Acute) Elevated CK (Acute) Hypokalemia (Acute) Leukocytosis (Acute) Overdose of cocaine (Acute) Acute encephalopathy (Acute) Aspiration pneumonia (Acute) Acute hyperactive opioid intoxication delirium (Acute) Acute hyperactive cocaine intoxication delirium (Acute) Agitation requiring sedation protocol (Acute) Social History (System 12/23/22 @ 09:16 by Amelia Almendarez) Smoking/Tobacco Use Status: Current every day Tobacco Type: cigarettes Smoking risk assessment performed?: Yes Alcohol Intake: never Drug use: Never Housing: homeless Do you feel safe at home: Yes Do you feel safe in your relationship?: Yes Exam Const Orientation: alert HENMT Head: normal to inspection General nose exam: external nose normal Mouth: moist mucous membranes Eyes General: appearance normal, both eyes and all related structures Neck Neck: normal visual inspection Resp Effort & Inspection: normal respiratory effort and able to speak in complete sentences Cardio Rate: regular rate Skin General skin exam: erythema Neuro General: patient alert and patient oriented x3 Extrem General: full ROM and capillary refill normal Psych Mental Status: mental status grossly normal Course Vital Signs Vital signs: Vital Signs Temperature 37.2 C 04/30/23 19:32 Pulse 102 H 04/30/23 19:32 Respiratory Rate 16 04/30/23 19:32 Blood Pressure 137/70 04/30/23 19:32 Pulse Oximetry 97 04/30/23 19:32 Temperature 37.2 C 04/30/23 19:32 Temperature Source Oral 04/30/23 19:32 Pulse 102 H 04/30/23 19:32 Respiratory Rate 16 04/30/23 19:32 Respiratory Effort Normal, Non-Labored 04/30/23 19:37 Blood Pressure 137/70 04/30/23 19:32 Blood Pressure Position Sitting 04/30/23 19:32 Pulse Oximetry 97 04/30/23 19:32 Oxygen Delivery Method Room Air 04/30/23 19:32 Oxygen Flow Rate 0 04/30/23 19:32 Pain Level 7 04/30/23 19:37 Medical Decision Making 42 yo male with history of substance abuse who was seen approximately one week ago for numerous wounds on his body that appeared to have been from self picking and was placed on augmentin and bactrim but he hasn't filled them yet, comes in with continued wounds and increased redness to the right lower leg. No fevers or chills. He has numberous wounds on his arms and legs that are cricular and excoriated and appear to be self picking wounds. He does have 3 wounds on his right lower extremity that have 4mm surrounding erythema on the anterior mid tibia, and two on the proximal medial calf and distal calf, no significant swelling, intact rom of his joints. No crepitus. Suspect cellulitis associated with wounds, will obtain cbc, procal, cmp and obtain ct of the lower extremity to eval for abscess and less likely nec fasc. labs and imaging without significant abnormalities, he states he had difficult access to transportation last time he got the antibiotic prescriptions but he states he will be able to pick them up at [facility] in [facility] which is where i sent augmentin and bactrim, he is stable for d/c, no progression of any erythema, advised to f/u with pcp and return precautions given Differential Diagnosis Differential Diagnosis: cellulitis, skin wound Medical Records Medical records reviewed: Yes I reviewed the patient's medical records. Imaging Data Radiologic Study: Attestation: I personally reviewed and interpreted this imaging study as follows: Imaging: CT Scan Radiologist's impression: IMPRESSION: 1. Subcutaneous edema throughout the right lower extremity. 2. No evidence of fracture or osseous destruction. Lab Data Lab results reviewed: Yes I reviewed the patient's lab results. Quality:[facility] Related Social Needs: No Data to Display Discharge Plan Disposition Patient Disposition: Home Condition: Stable Discharge Details Clinical Impression: Cellulitis of leg, right, Skin lesion Primary Care Provider: Unknown,Unknown ED Provider: Deven Medrano Home Meds and New Rx's Prescriptions: Continued sulfamethoxazole-trimethoprim [Bactrim DS] 800-160 mg tablet 1 tab PO BID Qty: 14 0RF amoxicillin-pot clavulanate 875-125 mg tablet 1 tab PO BID Qty: 14 0RF Discharge Instructions Instructions: Cellulitis (ED) Additional Instructions: take the antibiotics as prescribed follow up with your primary care provider within 1 week if you feel more ill, have high fevers or new symptoms such as difficulty breathing return to the emergency department
[2023-04-30 20:03] LABS: Abs Immature Grans 0.03 10^3/uL (0.0-0.06); Absolute Basophil Count 0.06 10^3/uL (0.0-0.2); Absolute Eosinophil Count 0.16 10^3/uL (0.0-0.7); Absolute Neutrophil Count 9.09 10^3/uL (1.2-6.7); Basophils % 0.5; Eosinophils % 1.3; HCT 42.2 % (40.0-50.0); HGB 14.2 g/dL (13.5-17.5); Immature Grans % 0.2; Lymphocytes % 16.5; MCH 30.9 pg (27.0-33.0); MCHC 33.6 % (32.0-36.0); MCV 92 fL (80-95); MPV 10.2 fL (8.0-11.0); Monocytes % 8.1; Neutrophils % 73.4; Platelet Count 281 10^3/uL (130-400); RDW 12.4 % (11.8-14.1); RDW-SD 41.8 fL; WBC 12.39 10^3/uL (4.4-10.8)
[2023-04-30] MEDS: Normal Saline Flush 10 ML SYR IVP (20:04)
[2023-04-30 20:05] LABS: Absolute Lymphocyte Count 2.04 10^3/uL (1.2-3.4)
[2023-04-30 20:15] LABS: PTT Activated 25.2 sec (23.6-32.8); Prothrombin Time 9.7 sec (9.1-11.1)
[2023-04-30 20:17] LABS: ALT 16 U/L (16-63); AST 13 U/L (15-37); Albumin 3.7 g/dL (3.4-5.0); Alkaline Phosphatase 78 U/L (46-116); Anion Gap 8.6 mmol/L (3-11); BUN 12 mg/dL (7-18); Bilirubin, Total 0.5 mg/dL (0.2-1.0); CO2 29.4 mmol/L (21.0-32.0); CREATININE 1.1 mg/dL (0.70-1.30); Calcium 9.6 mg/dL (8.5-10.1); Chloride 102 mmol/L (98-107); Estimated GFR 85.42 (mL/min/1.73m2); Glucose 100 mg/dL (74-106); Magnesium 2.3 mg/dL (1.8-2.4); Potassium 4.4 mmol/L (3.5-5.1); Sodium 140 mmol/L (136-145); Total Protein 8.2 g/dL (6.4-8.2)
[2023-04-30] MEDS: Omnipaque 350 MG/ML 100 ML BTL IJ (20:17)
[2023-04-30] MEDS: Normal Saline - Diluent 50 ML VIAL IJ (20:19)
[2023-04-30] MEDS: Ketorolac 15 MG/ML VIAL IVP (20:36)
[2023-04-30 20:37] LABS: Procalcitonin < 0.1 ng/mL
[2023-04-30] MEDS: Normal Saline 1,000 ML 1000 ML IV (20:37)
--- NOTE | 2023-04-30 21:27 | DI.VRAD_ITS ---
PROCEDURE INFORMATION: Exam: CT Right Lower Extremity With Contrast Exam date and time: 04/30/2023 8:03 PM Age: 42 years old Clinical indication: Ankle and foot and lower leg; Patient HX: Cellulitis right loewr extremity TECHNIQUE: Imaging protocol: CT of the right lower extremity with intravenous contrast was performed. COMPARISON: No relevant prior studies available. FINDINGS: Bones/joints: Normal. No acute fracture or dislocation. Soft tissues: Subcutaneous edema noted throughout, predominantly at the medial aspect. No significant degenerative changes. IMPRESSION: 1. Subcutaneous edema throughout the right lower extremity. 2. No evidence of fracture or osseous destruction. Dictated and Authenticated by: Molly Mendoza MD. Ordering:WESLEY Carvalho MD
[2023-04-30] MEDS: Amoxicillin 875/Clav. 125 TAB PO ×2 (22:02→22:03)
[2023-04-30] MEDS: Sulfameth/Trimeth DS TAB 1 TAB PO ×2 (22:04→22:05)
== END 2023-04-30 22:17 | disposition home or self-care (01) ==
PROVIDERS: Emergency Provider Emergency Medicine
DX: L03.115 Cellulitis of right lower limb (principal); F17.210 Nicotine dependence, cigarettes, uncomplicated; F19.90 Other psychoactive substance use, unspecified, uncomplicated
CPT/HCPCS: 36415; 80053; 84145; 96361; 96374; 99285; 73701; 83735; 85025; 85610; 85730; 99284; J1885; J3490

== ENCOUNTER 2023-06-19 09:33 | Emergency (ER) | payer MEDICARE, SELFPAY ==
[2023-06-19] VITALS (34 sets, daily range): BP systolic 122–150; BP diastolic 63–94; PULSE 84–109; RESP 14–27; TEMP 36.8; O2SAT 98
--- NOTE | 2023-06-19 10:09 | ED.GENADUL_ITS ---
Discharge Plan Disposition Patient Disposition: Home Condition: Stable Discharge Details Clinical Impression: Cellulitis Primary Care Provider: Unknown,Unknown ED Provider: Juan David Garcia Home Meds and New Rx's Prescriptions: New clindamycin HCl 150 mg capsule 450 mg PO TID 10 Days Qty: 90 0RF Discharge Instructions Instructions: Clindamycin (By mouth), Cellulitis (ED) Additional Instructions: You were seen in the emergency department for your many infected leg and arm wounds, you are likely colonized with MRSA bacteria and every time you get a small break in the skin even 1 that is microscopic you are getting wound infections. You need to seek out a wound care provider, we do not have them available and [facility]. I have sent the antibiotic clindamycin which covers MRSA down the hill to the pharmacy. Please purchase [id number] Hibiclens soap and use it once per day for 10 days or twice per day for 5 days to attempt to decolonize yourself of this bacteria. Please return to the ED for increasing fever, large swollen wounds draining copious amounts of pus. Discharge Data Discharge Date/Time-TO BE ENTERED AT DEPARTURE: 06/19/23 13:15 HPI General Date/Time Provider Initiated Documentation: 06/19/23 09:48 . HPI Narrative: 42 year-old male presents to ED today by POV/ambulating with a chief complaint of innumerous ulcers in various stages of ulceration to bilateral arms and legs with onset noted for weeks. Quality described as lesions that seem to pop up constantly mostly on his legs, no radiation to fever, nausea, weakness, large fluctuant swollen areas under blisters. Severity is described as moderate. Pa lliating factors include had some antibiotics weeks ago. Provoking factors include nothing specific- denies IVDU. Events leading up to the incident/Associated Symptoms: Patient has had MRSA in the past. Patient not anticoagulated. Related Data Home Medications Medication Instructions Recorded Confirmed clindamycin HCl 150 mg capsule 450 mg (3 x 150 mg) PO TID 06/19/23 cellulitis 10 days #90 caps Previous Rx's Medication Instructions Recorded clindamycin HCl 150 mg capsule 450 mg (3 x 150 mg) PO TID 06/19/23 cellulitis 10 days #90 caps Allergies Allergy/AdvReac Type Severity Reaction Status Date / Time acetaminophen [From Tylenol] Allergy Other (See Unverified 06/19/23 10:31 Comment) morphine Allergy Other (See Unverified 06/19/23 10:31 Comment) peanut Allergy Other (See Unverified 06/19/23 10:31 Comment) General Stated Complaint: Cellulitis HUMBERTO: 3 Review of Systems All systems reviewed & are unremarkable except as noted in HPI and below Exam Narrative Exam Narrative: GENERAL APPEARANCE: Well-nourished, non-toxic, awake and alert, atraumatic, no acute distress. SKIN: Warm, pink, dry, innumerous lesions to distal legs and arms in various stages of healing- consistent with possible IVDU vs superficial staph infection, no large fluctuant swellings, no active drainage, no lymphadenitis HEAD: Normocephalic, atraumatic, normal hair distribution for gender/age. EYES: Pupils PERRLA, EOMs intact without nystagmus, normal conjunctiva, no exudates on lids/lashes. ENT: Nares patent, no circumoral cyanosis, no facial swelling NECK: Supple, trachea midline, painless cervical ROM. LUNGS/CHEST: Lungs CTA bilaterally- no rhonchi/rales/wheezes diffusely, non- labored respirations, normal A/P diameter, symmetrical expansion, no chest wall deformity HEART (CV/PV): Regular rate and rhythm without murmur, no peripheral edema, no JVD. ABDOMEN: Soft, non-distended, no guarding. MSK: Normal ROM, no swelling/deformity to bilateral UEs or LEs, moving all extremities without weakness, no cyanosis, spine midline without tenderness, normal curvature. NEURO: Mental Status AAOx4 - alert to person, place, time, events No facial droop, no forehead involvement. Motor: No focal weakness - strength 5/5 in bilateral UEs and LEs, proximal and distal, symmetric. Sensory: sensation intact to light touch globally. Gait normal: patient ambulated without ataxia into ED room. PSYCH: euthymic, cooperative, pleasant, appropriate speech Course Vital Signs Vital signs: Vital Signs Temperature 36.8 C 06/19/23 09:39 Pulse 102 H 06/19/23 09:39 Respiratory Rate 18 06/19/23 09:39 Blood Pressure 137/93 H 06/19/23 09:39 Pulse Oximetry 98 06/19/23 09:39 Temperature 36.8 C 06/19/23 09:39 Temperature Source Temporal Artery Scan 06/19/23 09:39 Pulse 102 H 06/19/23 09:39 Respiratory Rate 18 06/19/23 09:39 Respiratory Effort Normal, Non-Labored 06/19/23 09:44 Blood Pressure 137/93 H 06/19/23 09:39 Blood Pressure Position Sitting 06/19/23 09:39 Pulse Oximetry 98 06/19/23 09:39 Oxygen Delivery Method Room Air 06/19/23 09:39 Oxygen Flow Rate 0 06/19/23 09:39 Medical Decision Making This dictation utilizes [id number] dictation software and may contain unedited grammatical errors. 42 y/o M presents to ED today with a chief complaint of innumerous skin lesions to legs and arms, various stages of healing, denies IVDU, has had MRSA in the past- denies fever/nausea/weakness/red streaking. Patients' medical history: Accidental fentanyl overdose, acute hyperactive opioid intoxication delirium. Family and social history: Denies IVDU, denies EtOH. Pertinent exam findings / vital signs include SKIN: Warm, pink, dry, innumerous lesions to distal legs and arms in various stages of healing- consistent with possible IVDU vs superficial staph infection, no large fluctuant swellings, no active drainage, no lymphadenitis. Differential / pathologies of concern include superficial staph skin infection, lesions of IVDU, bacteremia, cellulitis. Diagnostic studies of: -Basic labs performed including CBC which shows a mild leukocytosis at 14.6 -Initial lactate 2.6, given IV fluids with normalization of lactate likely in the setting of mild dehydration -CMP without significant electrolyte abnormalities -UA not provided, blood cultures pending. Interventions of: -IVF, Outpatient clindamycin PO. ED Course/Assessment/Plan: 42-year-old male patient presents with a numerous skin lesions consistent with superficial staph infection, denies IV DU but has history of fentanyl overdose. Counseled the patient on antibiotic use without signs of sepsis on laboratory workup today, prescribed clindamycin, counseled on decolonization protocol by obtaining [id number] Hibiclens soap and using it in the shower for 5 to 10 days to help prevent recurrence, strict return criteria for fever, red streaking, signs of spreading infection discussed. Findings not consistent with sepsis, bacteremia, large abscesses. Disposition of Cellulitis. Patient verbalized understanding of the plan and return to ED criteria and engaged in shared decision making. Medical Records Medical records reviewed: Yes I reviewed the patient's medical records. Lab Data Lab results reviewed: Yes I reviewed the patient's lab results. Labs: 06/19/23 10:25 Blood Blood Culture - Preliminary NO GROWTH 24 HOURS 06/19/23 10:14 Blood Blood Culture - Preliminary NO GROWTH 24 HOURS Laboratory Tests Range/Units 06/19/23 06/19/23 10:14 12:27 WBC (4.4-10.8) 10^3/uL 14.64 H RBC (4.36-5.78) 10^6/uL 4.37 Hgb (13.5-17.5) g/dL 13.3 L Hct (40.0-50.0) % 39.3 L MCV (80-95) fL 90 MCH (27.0-33.0) pg 30.4 MCHC (32.0-36.0) % 33.8 RDW (11.8-14.1) % 12.8 Plt Count (130-400) 10^3/uL 260 MPV (8.0-11.0) fL 10.9 Immature Gran % 0.4 Neutrophils % 78.6 Lymphocytes % 12.8 Monocytes % 6.4 Eosinophils % 1.4 Basophils % 0.4 Nucleated RBC % (0.0-0.3) % 0.0 Absolute Neutrophils (1.2-6.7) 10^3/uL 11.51 H Absolute Lymphocytes (1.2-3.4) 10^3/uL 1.87 Absolute Monocytes (0.1-0.8) 10^3/uL 0.94 H Absolute Eosinophils (0.0-0.7) 10^3/uL 0.20 Absolute Basophils (0.0-0.2) 10^3/uL 0.06 VBG Lactate (0.6-1.4) mmol/L 2.6 H* 1.3 Sodium (136-145) mmol/L 141 Potassium (3.5-5.1) mmol/L 3.6 Chloride (98-107) mmol/L 104 Carbon Dioxide (21.0-32.0) mmol/L 26.9 Anion Gap (3-11) mmol/L 10.1 BUN (7-18) mg/dL 12 Creatinine (0.70-1.30) mg/dL 1.0 Est GFR (CKD-EPI 2020) (mL/min/1.73m2) 95.77 Glucose (74-106) mg/dL 129 H Calcium (8.5-10.1) mg/dL 9.3 Total Bilirubin (0.2-1.0) mg/dL 0.2 AST (15-37) U/L 11 L ALT (16-63) U/L 16 Alkaline Phosphatase (46-116) U/L 93 Total Protein (6.4-8.2) g/dL 8.7 H Albumin (3.4-5.0) g/dL 3.6 Quality:SDOH Health Related Social Needs: No Data to Display PFSH All Active Problems (Updated 06/19/23 @ 13:01 by LORENZA Umana) Cellulitis (Acute) Accidental fentanyl overdose (Acute) Elevated CK (Acute) Hypokalemia (Acute) Leukocytosis (Acute) Overdose of cocaine (Acute) Acute encephalopathy (Acute) Aspiration pneumonia (Acute) Acute hyperactive opioid intoxication delirium (Acute) Acute hyperactive cocaine intoxication delirium (Acute) Agitation requiring sedation protocol (Acute) Social History (System 12/23/22 @ 09:16 by Amelia Almendarez) Smoking/Tobacco Use Status: Current every day Tobacco Type: cigarettes Smoking risk assessment performed?: Yes Alcohol Intake: never Drug use: Never Substance use type: does not use Housing: homeless Do you feel safe at home: Yes Do you feel safe in your relationship?: Yes
[2023-06-19 10:28] LABS: Lactate 2.6 mmol/L (0.6-1.4)
[2023-06-19 10:29] LABS: Abs Immature Grans 0.06 10^3/uL (0.0-0.06); Absolute Basophil Count 0.06 10^3/uL (0.0-0.2); Absolute Lymphocyte Count 1.87 10^3/uL (1.2-3.4); Absolute Monocyte Count 0.94 10^3/uL (0.1-0.8); Basophils % 0.4; Eosinophils % 1.4; HCT 39.3 % (40.0-50.0); HGB 13.3 g/dL (13.5-17.5); Immature Grans % 0.4; Lymphocytes % 12.8; MCH 30.4 pg (27.0-33.0); MCHC 33.8 % (32.0-36.0); MCV 90 fL (80-95); MPV 10.9 fL (8.0-11.0); Monocytes % 6.4; Neutrophils % 78.6; Platelet Count 260 10^3/uL (130-400); RBC 4.37 10^6/uL (4.36-5.78); RDW 12.8 % (11.8-14.1); RDW-SD 42.3 fL; WBC 14.64 10^3/uL (4.4-10.8)
[2023-06-19 10:31] LABS: Absolute Neutrophil Count 11.51 10^3/uL (1.2-6.7)
[2023-06-19] MEDS: Normal Saline 1,000 ML 1000 ML IV ×2 (10:37→11:40)
[2023-06-19 10:49] LABS: ALT 16 U/L (16-63); AST 11 U/L (15-37); Albumin 3.6 g/dL (3.4-5.0); Alkaline Phosphatase 93 U/L (46-116); Anion Gap 10.1 mmol/L (3-11); BUN 12 mg/dL (7-18); Bilirubin, Total 0.2 mg/dL (0.2-1.0); CO2 26.9 mmol/L (21.0-32.0); Calcium 9.3 mg/dL (8.5-10.1); Chloride 104 mmol/L (98-107); Estimated GFR 95.77 (mL/min/1.73m2); Glucose 129 mg/dL (74-106); Potassium 3.6 mmol/L (3.5-5.1); Sodium 141 mmol/L (136-145); Total Protein 8.7 g/dL (6.4-8.2)
[2023-06-19 12:33] LABS: Lactate 1.3 mmol/L (0.6-1.4)
== END 2023-06-19 13:15 | disposition home or self-care (01) ==
PROVIDERS: Emergency Provider Physician Assistant
DX: L03.113 Cellulitis of right upper limb (principal); L03.114 Cellulitis of left upper limb; L03.116 Cellulitis of left lower limb; L03.115 Cellulitis of right lower limb
CPT/HCPCS: 80053; 87040; 96360; 96374; 99283; 83605; 85025

== ENCOUNTER 2023-10-28 20:24 | Emergency (ER) | payer MEDICARE, SELFPAY ==
[2023-10-28 20:26] VITALS: BP 131/93; PULSE 107; RESP 20; TEMP 36.5; O2SAT 99
--- NOTE | 2023-10-28 20:47 | ED.GENADUL_ITS ---
Discharge Plan Disposition Patient Disposition: Home Condition: Stable Discharge Details Clinical Impression: Rash ED Provider: Deven Medrano Home Meds and New Rx's Prescriptions: New clindamycin HCl 150 mg capsule 450 mg PO TID 7 Days Qty: 63 0RF Discharge Instructions Additional Instructions: I placed on a follow-up list to try and establish with a primary care provider Take the antibiotic as prescribed If you feel more ill or have severe worsening pain or new symptoms such as high sustained fevers return to the emergency department for reevaluation HPI General Mode of arrival: ambulatory . Date/Time Provider Initiated Documentation: 10/28/23 20:25 . Limitations to Documentation: no limitations . Information obtained by: patient . History of Present Illness 43 year old M presents to the emergency department with the chief complaint of rash, described as moderate, Patient started experiencing this day(s) (3) and it has been constant. No relieving factors improve symptom(s), No exacerbating factors reported . Patient notes denies fever/chills. Patient did receive the following treatments prior to arrival, none Related Data Home Medications ?Medication ?Instructions ?Recorded ?Confirmed clindamycin HCl 150 mg capsule 450 mg (3 x 150 mg) PO TID 7 days 10/28/23 #63 caps Previous Rx's ?Medication ?Instructions ?Recorded clindamycin HCl 150 mg capsule 450 mg (3 x 150 mg) PO TID 7 days 10/28/23 #63 caps Allergies Allergy/AdvReac Type Severity Reaction Status Date / Time acetaminophen (From Tylenol) Allergy Other (See Unverified 10/28/23 20:35 Comment) morphine Allergy Other (See Unverified 10/28/23 20:35 Comment) peanut Allergy Other (See Unverified 10/28/23 20:35 Comment) General Stated Complaint: RashLesion HUMBERTO: 4 Review of Systems All systems reviewed & are unremarkable except as noted in HPI and below Constitutional Constitutional: Denies chills, Denies fever(s) and Denies weakness Cardiovascular Cardiovascular: Denies chest pain and Denies dyspnea Respiratory Respiratory: Denies cough and Denies dyspnea Gastrointestinal Gastrointestinal: Denies abdominal pain, Denies nausea and Denies vomiting Musculoskeletal Musculoskeletal: Denies joint swelling Integumentary/Breasts Skin/Breast: Reports rash Neurologic Neurologic: Denies weakness Exam Const General: no acute distress Orientation: alert HENMO Head: normal to inspection Ears: external ears normal General nose exam: external nose normal Mouth: moist mucous membranes Eyes General: appearance normal, both eyes and all related structures Neck Neck: normal visual inspection Resp Effort & Inspection: normal respiratory effort and able to speak in complete sentences Cardio Rate: regular rate Skin General skin exam: elasticity normal Neuro General: patient alert and patient oriented x3 Extrem General: normal to inspection Psych Mental Status: mental status grossly normal Course Vital Signs Vital signs: Vital Signs Temperature 36.5 C 10/28/23 20:26 Pulse 107 H 10/28/23 20:26 Respiratory Rate 20 10/28/23 20:26 Blood Pressure 131/93 H 10/28/23 20:26 Pulse Oximetry 99 10/28/23 20:26 Temperature 36.5 C 10/28/23 20:26 Temperature Source Temporal Artery Scan 10/28/23 20:26 Pulse 107 H 10/28/23 20:26 Respiratory Rate 20 10/28/23 20:26 Respiratory Effort Normal, Non-Labored 10/28/23 20:35 Blood Pressure 131/93 H 10/28/23 20:26 Blood Pressure Position Sitting 10/28/23 20:26 Pulse Oximetry 99 10/28/23 20:26 Oxygen Delivery Method Room Air 10/28/23 20:26 Oxygen Flow Rate 0 10/28/23 20:26 Pain Level 5 10/28/23 20:26 Medical Decision Making 43-year-old female with history of prior drug abuse denies any recent drug use, comes in with several days of lesions on his arms and legs similar to lesions he had in the past that have been treated well with antibiotics per the patient. He denies any fevers, severe pain, he notes that the lesions are itchy. He has numerous small circular lesions that appear like excoriations from scratching or picking with mild surrounding erythema around them. There is no drainage or crepitus. The wounds do seem to be consistent with a skin picking nature does note that he does pick at them when they are itchy. He has no findings on exam or history to suggest sepsis, no findings to suggest abscess or neck Fash. Will initiate clindamycin as this is what he was prescribed in June and states his lesions resolved quickly. Will have him follow-up with his PCP and return precautions given. Differential Diagnosis Differential Diagnosis: Cellulitis, MRSA, skin picking Quality:SDOH Health Related Social Needs: No Data to Display PFSH All Active Problems (Updated 10/28/23 @ 20:49 by Deven Medrano MD) Rash (Acute) Accidental fentanyl overdose (Acute) Elevated CK (Acute) Hypokalemia (Acute) Leukocytosis (Acute) Overdose of cocaine (Acute) Acute encephalopathy (Acute) Aspiration pneumonia (Acute) Acute hyperactive opioid intoxication delirium (Acute) Acute hyperactive cocaine intoxication delirium (Acute) Agitation requiring sedation protocol (Acute) Social History (System 12/23/22 @ 09:16 by Amelia Almendarez) Smoking/Tobacco Use Status: Current every day Tobacco Type: cigarettes, e- cigarettes and smokeless tobacco Smoking risk assessment performed?: Yes Alcohol Intake: never Drug use: Daily Substance use type: crack/cocaine Details: 10/28/23 used cocaine this morning. Housing: homeless Do you feel safe at home: Yes Do you feel safe in your relationship?: Yes
[2023-10-28] MEDS: Clindamycin 150 MG CAP 450 MG PO (20:56)
--- NOTE | 2023-10-28 23:00 | NUR.NOTE ---
Referral to Care Management. Patient needs to establish pcp routinely.Nursing Note:
== END 2023-10-28 21:10 | disposition home or self-care (01) ==
PROVIDERS: Emergency Provider Emergency Medicine
DX: R21 Rash and other nonspecific skin eruption (principal); F14.90 Cocaine use, unspecified, uncomplicated; F17.290 Nicotine dependence, other tobacco product, uncomplicated; Z86.14 Personal history of Methicillin resistant Staphylococcus aureus infection
CPT/HCPCS: 99283

== ENCOUNTER 2024-03-23 17:47 | Emergency (ER) | payer MEDICARE, SELFPAY ==
[2024-03-23 17:51] VITALS: BP 145/95; PULSE 91; RESP 16; TEMP 37.2; O2SAT 97
[2024-03-23 18:13] VITALS: BP 145/95; PULSE 91; RESP 16; TEMP 37.2; O2SAT 97
--- NOTE | 2024-03-23 18:44 | ED.GENADUL_ITS ---
Discharge Plan Disposition Patient Disposition: Home Condition: Stable Discharge Details Clinical Impression: Abscess of forearm, right Primary Care Provider: None,None ED Provider: Michelle Greene Home Meds and New Rx's Prescriptions: New cephalexin 500 mg capsule 500 mg PO QID 7 Days Qty: 28 0RF sulfamethoxazole-trimethoprim [Bactrim DS] 800-160 mg tablet 1 tab PO Q12H 7 Days Qty: 14 0RF Discharge Instructions Instructions: Abscess Incision and Drainage ED Additional Instructions: You were seen in the emergency department today for evaluation of an infection on your left forearm, numbness and abscess. In our department this abscess was drained, and you were started on antibiotics. Please take all of this antibiotic until it is gone, even if you start to feel better. You were provided with a referral to establish with primary care, and should make an appointment for reassessment. Continue to use Tylenol and ibuprofen as needed for pain, and thank you for allowing us to be part of your care. Discharge Data Discharge Date/Time-TO BE ENTERED AT DEPARTURE: 03/23/24 19:00 HPI General Mode of arrival: ambulatory . Date/Time Provider Initiated Documentation: 03/23/24 17:58 . Limitations to Documentation: no limitations . Information obtained by: patient and old records reviewed . HPI Narrative: HPI: This is a 43-year-old male patient with a past medical history significant for polysubstance use disorder, presenting for evaluation of an abscess. The patient reports that he was cleaning his basement and is concerned that he was bit by a spider on Tuesday. Since that time he has had worsening pain and redness. He expressed some pus, and was prompted to seek care due to ongoing pain and redness. Patient reports he has not had fevers or chills, has been eating and drinking normally for him. No reported current IVDU. No other tenderness or injuries that he is concerned about. Exam: Gen: Awake and alert, in no apparent distress HEENT: Non-icteric sclera Neck: Supple Lungs: No apparent respiratory distress, normal respiratory effort. CV: Appears well perfused, strong distal pulses, heart was regular rate and rhythm Abdomen: Non-distended MSK: Moves 4 extremities without apparent limitation in ROM Skin: Visualized skin without rashes, cyanosis. The patient has an approximately 1 and half centimeter area of fluctuance with overlying ulceration to the extensor aspect of his right forearm, with 2 additional centimeters of surrounding redness and induration concerning for cellulitis Neuro: Normal Gait, no obvious focal deficits or facial asymmetry. Speaks in full, clear sentences. Psych: Appropriate for situation. MDM: This is a 43-year-old male patient presenting for evaluation of abscess. Differential also included surrounding cellulitis. Considering considered foreign body and insect bite. Reassuringly, the patient is afebrile, and without systemic symptoms to increase my concern for bacteremia or sepsis. No trauma to suggest fracture or other injury. ED Course: Ultrasound demonstrates cobblestoning consistent with cellulitis, some evidence of subcutaneous air and underlying the ulcer which is likely due to the patient expressing pus. No significance concerning ultrasound findings for necrotizing skin or soft tissue infection. There was a very small fluid pocket, and we performed incision and drainage with a little formal anesthetic as noted below, with a scant amount of bloody drainage expressed. The abscess cavity was irrigated, and I started the patient on antibiotics to include Keflex and Bactrim given surrounding cellulitis. Provided the patient with a referral to establish with primary care for ethan ssessment. At this time, the patient has had a full medical evaluation and is safe for discharge to home. They are hemodynamically stable, ambulatory, and tolerating PO. They are understanding of the follow-up plan and return precautions. They left our facility without incident. Michelle Greene MD Related Data Home Medications ?Medication ?Instructions ?Recorded ?Confirmed cephalexin 500 mg capsule 500 mg PO QID 7 days #28 caps 03/23/24 sulfamethoxazole 800 1 tab PO Q12H 7 days #14 tabs 03/23/24 mg-trimethoprim 160 mg tablet (Bactrim DS) Previous Rx's ?Medication ?Instructions ?Recorded cephalexin 500 mg capsule 500 mg PO QID 7 days #28 caps 03/23/24 sulfamethoxazole 800 1 tab PO Q12H 7 days #14 tabs 03/23/24 mg-trimethoprim 160 mg tablet (Bactrim DS) Allergies Allergy/AdvReac Type Severity Reaction Status Date / Time acetaminophen (From Tylenol) Allergy Other (See Unverified 03/23/24 17:53 Comment) morphine Allergy Other (See Unverified 03/23/24 17:53 Comment) peanut Allergy Other (See Unverified 03/23/24 17:53 Comment) General Stated Complaint: Cellulitis HUMBERTO: 3 Course Vital Signs Vital signs: Vital Signs Temperature 37.2 C 03/23/24 17:51 Pulse 91 H 03/23/24 17:51 Respiratory Rate 16 03/23/24 17:51 Blood Pressure 145/95 H 03/23/24 17:51 Pulse Oximetry 97 03/23/24 17:51 Temperature 37.2 C 03/23/24 18:13 Temperature Source Oral 03/23/24 18:13 Pulse 91 H 03/23/24 18:13 Respiratory Rate 16 03/23/24 18:13 Respiratory Effort Normal, Non-Labored 03/23/24 18:16 Blood Pressure 145/95 H 03/23/24 18:13 Blood Pressure Position Sitting 03/23/24 18:13 Pulse Oximetry 97 03/23/24 18:13 Pain Level 7 03/23/24 18:13 Procedures Abscess I/D Site: Upper Extremity Side (if applicable): Right Local Anesthetic: Lidocaine 2% and With Epi Amount of anesthesia used (mL): 3 Technique: Incised with #11 Blade Amount of fluid expressed (mL): 1 (Scant bloody fluid) Irrigation: Yes Packing used?: None Complications: Pain Medical Decision Making Quality:SDOH Health Related Social Needs: No Data to Display PFSH All Active Problems (Updated 03/23/24 @ 18:44 by Michelle Greene MD) Abscess of forearm, right (Acute) Accidental fentanyl overdose (Acute) Elevated CK (Acute) Hypokalemia (Acute) Leukocytosis (Acute) Overdose of cocaine (Acute) Acute encephalopathy (Acute) Aspiration pneumonia (Acute) Acute hyperactive opioid intoxication delirium (Acute) Acute hyperactive cocaine intoxication delirium (Acute) Agitation requiring sedation protocol (Acute) Social History (System 12/23/22 @ 09:16 by Amelia Almendarez) Smoking/Tobacco Use Status: Current every day Tobacco Type: cigarettes, e-cigarettes and smokeless tobacco Smoking risk assessment performed?: Yes Alcohol Intake: never Drug use: Daily Substance use type: crack/cocaine Details: 10/28/23 used cocaine this morning. Housing: homeless Do you feel safe at home: Yes Do you feel safe in your relationship?: Yes PAWSS Have you Been Recently Intoxicated or Drunk Within the Last 30 days?: No Have you Ever Experienced Previous Episodes of Alcohol Withdrawal?: No Have you ever Experienced Withdrawal Seizures?: No Have you ever Experienced Delirium Tremens(DT)s?: No Have you ever undergone Alcohol Rehabilitation Treatment (i.e, inpt ot outpatient treatment programs)?: No Have you ever Experienced Blackouts?: No Have you ever Combined Alcohol with other Downers within the last 90 days?: No Have you ever Combined Alcohol with any other Substance of Abuse during the last 90 days?: No Positive Blood Alcohol level on Presentation? [PCS.BAL]: No Evidence of Increased Autonomic Activity (i.e. HR>120, tremor, sweating, agitation, nausea)?: No Result: 0 POCUS Exam (ED) Limited Soft Tissue Exam DATE OF EXAM: 03/23/24 TIME OF EXAM: 18:15 PROVIDER THAT PERFORMED THE STUDY: Michelle Greene IS THIS A REPEAT EXAM DURING THIS ENCOUNTER: No LOCATION OF EXAM: Upper extremity/right REASON FOR EXAM: Abscess, Pain, Redness and Swelling VISUALIZED STRUCTURES: Fascia, Skin and Subcutaneous tissue PERTINENT FINDINGS/IMPRESSION: Cellulitis R forearm , Cobblestoning R forearm and Fluid collection N/A . Exam Complete
[2024-03-23] MEDS: Cephalexin 500 MG CAP, 4 CAPS/BTL PO (18:51)
[2024-03-23] MEDS: Acetaminophen 500 MG TAB 1000 MG PO (18:52)
[2024-03-23] MEDS: Sulfameth/Trimeth DS TAB 1 TAB PO (18:53)
[2024-03-23] MEDS: Sulfameth/Trimeth DS, 2 TABS/BTL 1 TAB PO (18:53)
[2024-03-23] MEDS: Ibuprofen 600 MG TAB PO (18:53)
[2024-03-23] MEDS: Cephalexin 500 MG CAP PO (18:53)
[2024-03-23 19:01] VITALS: BP 117/82; PULSE 66; RESP 18; O2SAT 95
== END 2024-03-23 19:00 | disposition home or self-care (01) ==
PROVIDERS: Emergency Provider Emergency Medicine
DX: L02.413 Cutaneous abscess of right upper limb (principal)
CPT/HCPCS: 10060; 76882; 99284; 99283; J2004